=== PATIENT | female | born 1935 | race Caucasian/White ===

== ENCOUNTER → 2018-02-27 14:12 | Outpatient (CLI) | payer OTHER, MEDICAID, SELFPAY | PROVIDERS: PCP Family Medicine; Visit Provider Family Medicine | DX: M81.0 Age-related osteoporosis without current pathological fracture (principal) | CPT/HCPCS: 77080; 77081 ==

== ENCOUNTER → 2018-08-28 10:29 | Outpatient (CLI) | payer OTHER, MEDICAID, SELFPAY ==
--- NOTE | 2018-08-28 | DI.CT.S_ITS ---
PROCEDURE: CT ABDOMEN PELVIS W CON INDICATIONS: ABDOMINAL PAIN TECHNIQUE: After the administration of oral and intravenous contrast, 5 mm thick sections acquired from the diaphragms to the symphysis. 5 mm thick coronal and sagittal reformats were performed. For radiation dose reduction, the following was used: automated exposure control, adjustment of mA and/or kV according to patient size. COMPARISON: [facility], CT, ABDOMEN/PELVIS WITH CONTRAST, 06/25/2017, 12:21. FINDINGS: Image quality: Excellent. ABDOMEN: Lung bases: Fat-containing right posterior hemidiaphragmatic hernia is present, as before. Lung bases are otherwise clear. Heart size is normal. Solid organs: Liver is normal in size and enhancement. Gallbladder is surgically absent. Biliary system is non-dilated. Pancreas enhances normally. Spleen is normal in size and enhancement. No adrenal nodules. Kidneys are normal in size and enhancement, without hydronephrosis. Peritoneum and bowel: There is a new moderate hiatal hernia. Stomach, small bowel, and colon loops are normal in caliber and wall thickness. No free fluid or air. Appendix not seen. No evidence of appendicitis. Nodes and vessels: No retroperitoneal or mesenteric adenopathy. Aorta and inferior vena cava are normal in caliber. Miscellaneous: No ventral hernias. PELVIS: Genitourinary: Bladder wall thickness is normal. Bilateral ovarian cysts have increased in size, measuring 57 mm on the right, and 32 mm on the left Miscellaneous: No inguinal hernias or adenopathy. Left posterior pelvic cyst adjacent to the vaginal cuff is increased, measuring 37 mm. Bones: No suspicious bony lesions. Severe leftward curvature of the lumbar spine. Moderate rightward curvature of the thoracolumbar junction. No vertebral body compression fractures. IMPRESSION: 1. No acute process. 2. New moderate hiatal hernia. 3. Appendix not seen. No evidence of appendicitis. 4. Increased bilateral pelvic/ovarian cysts, which could indicate low-grade malignancy. Gynecological consultation recommended. Dictated by: Judson Khan M.D. on 08/28/2018 at 13:35 Approved by: Judson Khan M.D. on 08/28/2018 at 13:41
== END ==
PROVIDERS: PCP Family Medicine; Visit Provider Family Medicine
DX: R10.9 Unspecified abdominal pain (principal); K44.9 Diaphragmatic hernia without obstruction or gangrene; N83.202 Unspecified ovarian cyst, left side; N83.201 Unspecified ovarian cyst, right side
CPT/HCPCS: 74177; Q9967

== ENCOUNTER → 2018-09-18 07:38 | Outpatient (CLI) | payer OTHER, MEDICAID, SELFPAY ==
--- NOTE | 2018-09-18 | DI.US.S_ITS ---
PROCEDURE: US PELVIC COMPLETE INDICATIONS: OVARIAN CYSTS TECHNIQUE: Real-time scanning was performed of the pelvic organs, with image documentation. Additional endovaginal scanning was necessary due to incomplete visualization of the adnexal and endometrial structures by transabdominal scanning. COMPARISON: [facility], CT, ABDOMEN/PELVIS WITH CONTRAST, 06/25/2017, 12:21. [facility], CT, CT ABDOMEN PELVIS W CON, 08/28/2018, 11:33. FINDINGS: Transabdominal scanning: Limited scanning through the kidneys shows no hydronephrosis. No pathologic free abdominal or pelvic fluid. Endovaginal scanning: Uterus: Surgically absent. Ovaries: Ovaries are surgically absent. Simple cyst in mass within the right adnexa measuring 5.8 x 3.8 x 4.4 cm. Multicystic, mildly complex cystic mass within the left adnexa with the largest component measured 3.4 x 3.0 x 3.3 cm and the 2 smaller components measuring 2.0 x 1.3 x 1.4 cm and 1.6 x 1.0 x 1.4 cm respectively. Doppler assessment demonstrates no internal flow involving either of the cystic masses. IMPRESSION: 1. Bilateral cystic masses in pelvis similar to prior CT scan dated 08/28/2018. Cystadenoma/cystadenocarcinoma cannot be excluded. A gynecologic consultation is recommended. If clinically indicated, gynecologic protocol MRI could be performed for further characterization. Dictated by: Jelani WISEMAN Interpreted: Patria Coelho MD on 09/18/2018 at 9:41 Approved by: Patria Coelho M.D. on 09/18/2018 at 10:57
== END ==
PROVIDERS: PCP Family Medicine; Visit Provider Family Medicine
DX: N94.89 Other specified conditions associated with female genital organs and menstrual cycle (principal); Z90.722 Acquired absence of ovaries, bilateral
CPT/HCPCS: 76830; 76856

== ENCOUNTER → 2018-10-02 15:06 | Outpatient (CLI) | payer OTHER, MEDICAID, SELFPAY ==
[2018-10-02 16:19] LABS: Add Manual Diff / Slide Review NO; Basophils Percent Auto 0.3 % (0-2); Eosinophils Percent Auto 0.1 % (2-4); Hematocrit 37.1 % (36-46); Hemoglobin 11.9 g/dL (12.0-16.0); Lymphocytes Percent Auto 7.1 % (25-40); Mean Corpuscular Hemoglobin 27.3 PG (26-34); Mean Corpuscular Volume 85.1 fL (80-100); Monocytes Percent Auto 1.7 % (3-14); Neutrophils Absolute Auto 10000 /uL (1500-7000); Neutrophils Percent Auto 90.8 % (50-75); Platelet Count 272 X10^3/uL (150-400); Red Blood Cell Count 4.35 X10^6/uL (4.0-5.2)
[2018-10-02 16:30] LABS: Alanine Aminotransferase 21 IU/L (9-52); Albumin 4.2 g/dL (3.5-5.0); Albumin Globulin Ratio 1.8 (1.0-2.8); Alkaline Phosphatase 55 U/L (38-126); Aspartate Aminotransferase 16 IU/L (14-36); BUN Creatinine Ratio 18.2 (6-22); Bilirubin Total 0.2 mg/dL (0.2-1.3); Blood Urea Nitrogen 20 mg/dL (7-17); Calcium 10.8 mg/dL (8.4-10.2); Carbon Dioxide 24 mmol/L (22-32); Chloride 97 mmol/L (98-107); Estimated Glomerular Filt Rate 47.7 mL/min (>60); Globulin 2.4 g/dL (1.7-4.1); Glucose 188 mg/dL (80-110); HEMOLYSIS < 15 (0-50); Potassium 4.6 mmol/L (3.4-5.1); Sodium 133 mmol/L (137-145); Total Protein 6.6 g/dL (6.3-8.2)
== END ==
PROVIDERS: PCP Family Medicine; Visit Provider Dermatology
DX: Z79.899 Other long term (current) drug therapy (principal)
CPT/HCPCS: 36415; 80053; 85025

== ENCOUNTER → 2018-11-25 14:05 | Outpatient (CLI) | payer OTHER, MEDICAID, SELFPAY ==
[2018-11-25 14:36] LABS: Add Manual Diff / Slide Review NO; Basophils Absolute Auto 100 /uL (0-100); Basophils Percent Auto 0.9 % (0-2); Eosinophils Absolute Auto 100 /uL (0-450); Eosinophils Percent Auto 0.8 % (2-4); Hematocrit 36.1 % (36-46); Hemoglobin 11.7 g/dL (12.0-16.0); Lymphocytes Absolute Auto 1000 /uL (1100-4500); Mean Corpuscular HGB Conc 32.3 % (30-36); Mean Corpuscular Hemoglobin 27.1 PG (26-34); Mean Corpuscular Volume 84.2 fL (80-100); Monocytes Absolute Auto 400 /uL (0-900); Neutrophils Absolute Auto 8100 /uL (1500-7000); Neutrophils Percent Auto 84.3 % (50-75); Platelet Count 277 X10^3/uL (150-400); Red Blood Cell Count 4.29 X10^6/uL (4.0-5.2); Red Cell Distribution Width 16.1 % (11.6-14.8); White Blood Cell Count 9.6 X10^3/uL (4.5-11.0)
[2018-11-25 14:37] LABS: Alanine Aminotransferase 21 IU/L (9-52); Albumin 4.2 g/dL (3.5-5.0); Albumin Globulin Ratio 1.6 (1.0-2.8); Alkaline Phosphatase 51 U/L (38-126); Aspartate Aminotransferase 16 IU/L (14-36); BUN Creatinine Ratio 15.8 (6-22); Bilirubin Total 0.3 mg/dL (0.2-1.3); Blood Urea Nitrogen 19 mg/dL (7-17); Calcium 10.6 mg/dL (8.4-10.2); Carbon Dioxide 25 mmol/L (22-32); Chloride 96 mmol/L (98-107); Globulin 2.7 g/dL (1.7-4.1); Glucose 177 mg/dL (80-110); HEMOLYSIS < 15 (0-50); Potassium 5.1 mmol/L (3.4-5.1); Sodium 132 mmol/L (137-145); Total Protein 6.9 g/dL (6.3-8.2)
== END ==
PROVIDERS: PCP Family Medicine; Visit Provider Dermatology
DX: Z79.899 Other long term (current) drug therapy (principal)
CPT/HCPCS: 36415; 80053; 85025

== ENCOUNTER → 2019-01-25 14:43 | Outpatient (CLI) | payer OTHER, MEDICAID, SELFPAY ==
[2019-01-25 15:26] LABS: Add Manual Diff / Slide Review NO; Basophils Absolute Auto 0 /uL (0-100); Basophils Percent Auto 0.2 % (0-2); Eosinophils Absolute Auto 0 /uL (0-450); Eosinophils Percent Auto 0.1 % (2-4); Hematocrit 36.1 % (36-46); Hemoglobin 11.4 g/dL (12.0-16.0); Lymphocytes Absolute Auto 700 /uL (1100-4500); Lymphocytes Percent Auto 6.7 % (25-40); Mean Corpuscular HGB Conc 31.4 % (30-36); Mean Corpuscular Hemoglobin 26.6 PG (26-34); Mean Corpuscular Volume 84.7 fL (80-100); Monocytes Absolute Auto 400 /uL (0-900); Monocytes Percent Auto 3.6 % (3-14); Neutrophils Absolute Auto 9100 /uL (1500-7000); Neutrophils Percent Auto 89.4 % (50-75); Platelet Count 308 X10^3/uL (150-400); Red Blood Cell Count 4.26 X10^6/uL (4.0-5.2); Red Cell Distribution Width 15.6 % (11.6-14.8); White Blood Cell Count 10.2 X10^3/uL (4.5-11.0)
[2019-01-25 17:35] LABS: Alanine Aminotransferase 29 IU/L (9-52); Albumin 4.1 g/dL (3.5-5.0); Albumin Globulin Ratio 1.7 (1.0-2.8); Alkaline Phosphatase 48 U/L (38-126); Aspartate Aminotransferase 20 IU/L (14-36); BUN Creatinine Ratio 22.7 (6-22); Bilirubin Total 0.1 mg/dL (0.2-1.3); Blood Urea Nitrogen 25 mg/dL (7-17); Calcium 10.4 mg/dL (8.4-10.2); Carbon Dioxide 24 mmol/L (22-32); Chloride 95 mmol/L (98-107); Estimated Glomerular Filt Rate 47.6 mL/min (>60); Globulin 2.4 g/dL (1.7-4.1); Glucose 93 mg/dL (80-110); HEMOLYSIS < 15 (0-50); Sodium 129 mmol/L (137-145); Total Protein 6.5 g/dL (6.3-8.2)
[2019-01-25 17:40] LABS: Potassium 5.5 mmol/L (3.4-5.1)
== END ==
PROVIDERS: Visit Provider Dermatology
DX: Z79.899 Other long term (current) drug therapy (principal)
CPT/HCPCS: 36415; 80053; 85025

== ENCOUNTER → 2019-03-26 10:11 | Outpatient (CLI) | payer OTHER, MEDICAID, SELFPAY ==
[2019-03-26 10:55] LABS: Add Manual Diff / Slide Review NO; Basophils Absolute Auto 100 /uL (0-100); Basophils Percent Auto 0.8 % (0-2); Eosinophils Absolute Auto 200 /uL (0-450); Hematocrit 35.4 % (36-46); Hemoglobin 11.4 g/dL (12.0-16.0); Lymphocytes Absolute Auto 1700 /uL (1100-4500); Lymphocytes Percent Auto 20.6 % (25-40); Mean Corpuscular HGB Conc 32.2 % (30-36); Mean Corpuscular Hemoglobin 26.3 PG (26-34); Mean Corpuscular Volume 81.9 fL (80-100); Monocytes Absolute Auto 800 /uL (0-900); Monocytes Percent Auto 9.6 % (3-14); Neutrophils Absolute Auto 5400 /uL (1500-7000); Platelet Count 304 X10^3/uL (150-400); Red Blood Cell Count 4.33 X10^6/uL (4.0-5.2); Red Cell Distribution Width 14.4 % (11.6-14.8); White Blood Cell Count 8.1 X10^3/uL (4.5-11.0)
[2019-03-26 11:13] LABS: Alanine Aminotransferase 11 IU/L (9-52); Albumin Globulin Ratio 1.5 (1.0-2.8); Alkaline Phosphatase 55 U/L (38-126); Aspartate Aminotransferase 19 IU/L (14-36); BUN Creatinine Ratio 15.5 (6-22); Bilirubin Total 0.2 mg/dL (0.2-1.3); Blood Urea Nitrogen 17 mg/dL (7-17); Calcium 10.6 mg/dL (8.4-10.2); Carbon Dioxide 28 mmol/L (22-32); Chloride 97 mmol/L (98-107); Estimated Glomerular Filt Rate 47.6 mL/min (>60); Globulin 2.6 g/dL (1.7-4.1); Glucose 74 mg/dL (80-110); HEMOLYSIS < 15 (0-50); Potassium 4.2 mmol/L (3.4-5.1); Sodium 131 mmol/L (137-145); Total Protein 6.6 g/dL (6.3-8.2)
== END ==
PROVIDERS: Visit Provider Dermatology
DX: Z79.899 Other long term (current) drug therapy (principal)
CPT/HCPCS: 36415; 80053; 85025

== ENCOUNTER 2019-04-10 08:52 | Emergency (ER) | payer OTHER, MEDICAID, SELFPAY ==
[2019-04-10 08:47] VITALS: BP 159/84; PULSE 90; RESP 18; TEMP 37.2; O2SAT 98; BMI 17.8
[2019-04-10 09:00] VITALS: BP 162/88; PULSE 79; RESP 12; O2SAT 97
--- NOTE | 2019-04-10 09:02 | DI.US.S_ITS ---
PROCEDURE: US ABDOMEN LIMITED INDICATIONS: RUQ PAIN TECHNIQUE: Real-time focused scanning was performed of the abdomen, with image documentation. COMPARISON: Prior CT 08/28/18. FINDINGS: Prior cholecystectomy, source of right hand pain is not seen. IMPRESSION: Prior cholecystectomy. No biliary distention found. No liver lesion identified. Dictated by: Lex Scherer M.D. on 04/10/2019 at 10:01 Approved by: Lex Scherer M.D. on 04/10/2019 at 10:02
--- NOTE | 2019-04-10 09:02 | DI.RAD.S_ITS ---
PROCEDURE: XR CHEST 1V INDICATIONS: chest pain TECHNIQUE: One view of the chest was acquired. COMPARISON: [facility], CT, CT ABDOMEN PELVIS W CON, 04/10/2019, 9:44. [facility], CR, CHEST 2 VIEW, 05/14/2016, 11:42. FINDINGS: Surgical changes and devices: This is a cardiac pacer secondary to goiter is present. Lungs and pleura: There is slight increased density identified within the lung bases, which probably is related to parenchymal crowding from shallow inspiration. No lobar consolidation, effusion, or pneumothorax is evident. Mediastinum: Mediastinal contours appear normal. Heart size is normal. Bones and chest wall: No suspicious bony lesions. Overlying soft tissues appear unremarkable. IMPRESSION: No acute cardiopulmonary process is evident. Dictated by: Jermaine Vieyra M.D. on 04/10/2019 at 9:06 Approved by: Jermaine Vieyra M.D. on 04/10/2019 at 9:07
--- NOTE | 2019-04-10 09:02 | DI.CT.S_ITS ---
PROCEDURE: CT ABDOMEN PELVIS W CON INDICATIONS: lower pain, ruq pain TECHNIQUE: After the administration of oral and intravenous contrast, 5 mm thick sections acquired from the diaphragms to the symphysis. 5 mm thick coronal and sagittal reformats were performed. For radiation dose reduction, the following was used: automated exposure control, adjustment of mA and/or kV according to patient size. COMPARISON: [facility], CT, CT ABDOMEN PELVIS W CON, 08/28/2018, 11:33. [facility], CT, ABDOMEN/PELVIS WITH CONTRAST, 06/25/2017, 12:21. FINDINGS: Image quality: Diagnostic. ABDOMEN: Lung bases: Lung bases are clear. Heart size is normal. Pectus excavatum is noted with mild mass effect on the right heart border. Cardiac pacer device is incidentally noted. Solid organs: Liver is normal in size and enhancement. The gallbladder is surgically absent. The common bile duct is mildly dilated and measures up to approximately 1.1 cm in diameter, which is unchanged since the previous exam. Pancreas enhances normally. Spleen is normal in size and enhancement. No adrenal nodules. Kidneys are normal in size and enhancement, without hydronephrosis. Peritoneum and bowel: There continues to be a moderate-sized hiatal hernia, which has not significantly changed in size. The stomach is otherwise unremarkable. The small bowel loops are nondilated. There is moderate residual stool identified throughout the colon, which is more pronounced involving the cecum. No pericolonic or mesenteric inflammation is identified. There is no free fluid or loculated fluid collection. No free air is evident. Nodes and vessels: No retroperitoneal or mesenteric adenopathy. Aorta and inferior vena cava are normal in caliber. Bones: No acute fracture or suspicious osseous lesion is present. 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 The vertebral body heights are well-maintained without an acute fracture evident. PELVIS: Genitourinary: Bladder wall thickness is normal. Cystic lesions within the pelvis are again evident. The largest is located within the right hemipelvis and has decreased in size in the interim, measuring approximately 3.8 x 2.7 cm (image 61, series 2), previously measuring approximately 5.5 x 3.8 cm. The more centrally positioned a cystic fluid collection within the pelvis has not significantly changed in size measuring approximately 3.9 x 3.3 cm (previously measuring 3.8 x 3.3 cm when remeasured in a similar configuration. The smaller left adnexal fluid collections have slightly increased in size in the interim measuring 3.1 x 2.2 cm (image 61, series 2), previously measuring 2.8 x 2.1 cm. There is mild peripheral nodularity may be present. Miscellaneous: No inguinal hernias or adenopathy. No free fluid or loculated fluid collection is evident. Calcification within the subcutaneous tissues overlying the superior right gluteal region likely represents an injection granuloma or site of previous injury. Bones: No suspicious bony lesions. No acute pelvic fractures are identified. Postoperative changes related to right hip arthroplasty are noted. There may be a right hip effusion. IMPRESSION: 1. No definite acute abnormality within the abdomen or pelvis. 2. Probable constipation. No obstruction. 3. Cystic lesions within the pelvis demonstrate variable degrees of change as described. A low-grade neoplastic process cannot be excluded. 4. Mild dilatation of the common bile duct is likely within normal limits given the patient's history of prior cholecystectomy. If there is clinical concern for choledocholithiasis, please consider MRCP for further evaluation. Dictated by: Jermaine Vieyra M.D. on 04/10/2019 at 9:07 Approved by: Jermaine Vieyra M.D. on 04/10/2019 at 9:17
--- NOTE | 2019-04-10 09:05 | ED.ABDPAIN ---
HPI - Abdominal Pain General Chief Complaint: Abdominal Pain Stated Complaint: abdominal pain Time Seen by Provider: 04/10/19 08:58 Source: patient Mode of arrival: ambulatory Limitations: no limitations History of Present Illness HPI narrative: Patient is an 83-year-old female who presents with abdominal pain. She has a history of diverticulosis. She is experiencing some epigastric pain lower abdominal pain as well. It has been going she took pain pill this morning but it does not seem to be helping. She can't remember her last bowel movement back she had an enema couple days ago. She has not had any fever or chills she denies chest pain or shortness of breath but is having pain in the epigastric area no right upper quadrant pain. He denies any fever no nausea and no vomiting no bloody stool. MD complaint: abdominal pain Onset (ago): day(s) Quality: cramping Migration to: no migration Relieving factors: nothing Related Data Home Medications Medication Instructions Recorded Confirmed Zolpidem Tartrate (Ambien) #0 12/24/10 [ESTRADIOL] 0.625 mg PO QDAY #0 12/24/10 [MELOXICAM] 15 mg PO AM #0 12/24/10 diphenhydramine HCl [Benadryl 50 mg PO Q6HP PRN #0 05/11/16 Allergy] paroxetine HCl 30 mg PO QDAY #0 05/11/16 amlodipine [Norvasc] 5 mg PO BID #0 06/13/17 cholecalciferol (vitamin D3) 5,000 unit PO QDAY #0 06/13/17 diazepam 5 mg PO PRN PRN #0 06/13/17 folic acid 1 mg PO QDAY #0 06/13/17 hydrocodone-acetaminophen [Vicodin] #0 06/13/17 hyoscyamine sulfate 0.125 mg SUBLINGUAL #0 06/13/17 methotrexate sodium (PF) 50 mg IV QWEEK #0 06/13/17 omega 1-bij-ryc-fish oil [Fish Oil] 1,000 mg PO BID #0 06/13/17 omeprazole 20 mg PO BID #0 06/13/17 prednisolone [Millipred] 5 mg PO QDAY #0 06/13/17 sucralfate 1 gm PO ACHS #0 06/13/17 Previous Rx's Medication Instructions Recorded lactulose 15 ml PO BID PRN #473 ml 04/10/19 Allergies Allergy/AdvReac Type Severity Reaction Status Date / Time erythromycin base Allergy Severe swelling Verified 04/10/19 09:02 [ERYTHROMYCIN BASE] amoxicillin [AMOXICILLIN] Allergy Intermediate diarhhea Verified 04/10/19 09:02 balsam shemar [BALSAM SHEMAR] Allergy Intermediate rash Verified 04/10/19 09:02 bronopol [BRONOPOL] Allergy Intermediate rash Verified 04/10/19 09:02 cefdinir [CEFDINIR] Allergy Intermediate stomach Verified 04/10/19 09:02 ache cobalt [COBALT] Allergy Intermediate rash Verified 04/10/19 09:02 propylene glycol Allergy Intermediate rash Verified 04/10/19 09:02 [PROPYLENE GLYCOL] Sulfa (Sulfonamide Allergy Intermediate nausea Verified 04/10/19 09:02 Antibiotics) [SULFA (SULFONAMIDE ANTIBIOTICS)] morphine [MORPHINE] Allergy Unknown Verified 04/10/19 09:02 Review of Systems Review of Systems ROS Unobtainable: All systems reviewed & are unremarkable except as noted in HPI and below Constitutional Denies chills, Denies fever(s), Denies lethargy and Denies weakness Eyes Denies change in vision, Denies eye discharge, Denies irritation and Denies loss of vision ENT Ears, Nose, Mouth, and Throat: Denies change in voice, Denies neck pain and Denies sore throat Cardiovascular Denies chest pain, Denies irregular heart rhythm, Denies lightheadedness, Denies palpitations, Denies dyspnea, Denies dyspnea on exertion and Denies orthopnea Respiratory Denies cough, Denies dyspnea, Denies dyspnea on exertion and Denies wheezing Gastrointestinal Gastrointestinal: Reports as per HPI, Reports abdominal pain, Denies nausea and Denies vomiting Genitourinary Denies hematuria, Denies flank pain, Denies urinary incontinence and Denies urinary urgency Musculoskeletal Denies neck pain Neurologic Denies loss of vision and Denies weakness Endocrine Denies palpitations Allergic/Immunologic Denies wheezing [facility] Medical History Diverticulosis (Acute) Social History Smoking Status: Former smoker Social History Smoking Status: Former smoker Exam Initial Vital Signs Initial Vital Signs: Vital Signs Temperature 99.0 F 04/10/19 08:47 Pulse Rate 90 04/10/19 08:47 Respiratory Rate 18 04/10/19 08:47 Blood Pressure 159/84 H 04/10/19 08:47 Pulse Oximetry 98 04/10/19 08:47 GENERAL: Alert elderly female no acute distress a no times HEENT: Head atraumatic,EOMI, pupils reactive, face symmetric, moist mucous membranes CARDIOVASCULAR: Regular rate and rhythm without murmurs, rubs or gallops. RESPIRATORY: Breath sounds equal bilaterally, no wheezes rales or rhonchi. ABDOMEN: Soft, in epigastric area mild tenderness in right upper quadrant pain lower abdominal tenderness more on the left no guarding no rebound EXTREMITIES: Normal range of motion, no clubbing or edema. Neurovascularly intact NEUROLOGICAL: Alert and oriented x4.Normal gait and speech. Cranial nerves II through XII grossly intact. SKIN: Warm, dry, no laceration, no petechiae, no rashes or lesions. Course Orders Ordered: ED Orders 04/10/19 09:02 CT abdomen pelvis w con Stat US abdomen limited Stat XR chest 1V Stat EKG-12 Lead Stat 04/10/19 09:05 Complete Blood Count AUTO DIFF Stat Comprehensive Metabolic Panel Stat Lipase Stat Troponin & CK Cardiac Panel Stat Discontinued Medications Hydromorphone HCl (Dilaudid) 0.5 mg IV NOW ONE Stop: 04/10/19 12:13 Last Admin: 04/10/19 12:25 Dose: 0.5 mg Sodium Chloride (Normal Saline 0.9%) 1,000 mls @ 150 mls/hr IV CONT CYRUS Last Infusion: 04/10/19 14:21 Dose: 0 mls/hr Admin: 04/10/19 09:10 Dose: 150 mls/hr Ketorolac Tromethamine (Toradol) 15 mg IV NOW ONE Stop: 04/10/19 14:03 Last Admin: 04/10/19 14:05 Dose: 15 mg Mineral Oil (Mineral Oil Enema) 1 each OH NOW ONE Stop: 04/10/19 10:30 Last Admin: 04/10/19 12:49 Dose: 1 each Ondansetron HCl (Zofran) 4 mg IV NOW ONE Stop: 04/10/19 12:30 Last Admin: 04/10/19 12:31 Dose: 4 mg Vital Signs - 8 hr 04/10/19 08:47 04/10/19 09:00 04/10/19 10:09 Temperature 99.0 F Pulse Rate 90 79 79 Respiratory Rate 18 12 13 Blood Pressure 159/84 H Blood Pressure [Right Arm] 162/88 H 161/76 H Pulse Oximetry 98 97 99 04/10/19 11:36 04/10/19 12:00 04/10/19 14:06 Temperature Pulse Rate 91 H 91 H 77 Respiratory Rate 15 16 16 Blood Pressure Blood Pressure [Right Arm] 171/78 H 158/78 H 144/80 H Pulse Oximetry 98 100 99 MDM - Abdominal Pain Lab Data Attestation: I reviewed the patient's lab results. Result diagrams: 04/10/19 09:05 04/10/19 09:05 Lab Results 04/10/19 04/10/19 Range/Units 09:05 09:05 WBC 6.7 (4.5-11.0) X10^3/uL RBC 4.72 (4.0-5.2) X10^6/uL Hgb 12.3 (12.0-16.0) g/dL Hct 37.7 (36-46) % MCV 79.8 L (80-100) fL MCH 25.9 L (26-34) PG MCHC 32.5 (30-36) % RDW 15.0 H (11.6-14.8) % Plt Count 278 (150-400) X10^3/uL Neut % (Auto) 61.1 (50-75) % Lymph % (Auto) 25.7 (25-40) % Moore % (Auto) 9.9 (3-14) % Eos % (Auto) 2.5 (2-4) % Baso % (Auto) 0.8 (0-2) % Neut # (Auto) 4100 (2277-8862) /uL Lymph # (Auto) 1700 (9200-4018) /uL Moore # (Auto) 700 (0-900) /uL Eos # (Auto) 200 (0-450) /uL Baso # (Auto) 100 (0-100) /uL Sodium 131 L (137-145) mmol/L Potassium 3.5 (3.4-5.1) mmol/L Chloride 97 L (98-107) mmol/L Carbon Dioxide 23 (22-32) mmol/L BUN 10 (7-17) mg/dL Creatinine 1.00 (0.52-1.04) mg/dL Estimated GFR 53.1 L (>60) mL/min BUN/Creatinine Ratio 10.0 (6-22) Glucose 105 (80-110) mg/dL Calcium 10.5 H (8.4-10.2) mg/dL Total Bilirubin 0.4 (0.2-1.3) mg/dL AST 20 (14-36) IU/L ALT 13 (9-52) IU/L Alkaline Phosphatase 55 (38-126) U/L Total Creatine Kinase 39 (30-135) U/L CK-MB (CK-2) TNP CK-MB (CK-2) Rel Index TNP Troponin I 0.014 (0.01-0.034) ng/mL Total Protein 6.8 (6.3-8.2) g/dL Albumin 4.2 (3.5-5.0) g/dL Globulin 2.6 (1.7-4.1) g/dL Albumin/Globulin Ratio 1.6 (1.0-2.8) Lipase 104 (23-300) U/L Imaging Data Chest x-ray: Radiologist's impression: PROCEDURE: XR CHEST 1V INDICATIONS: chest pain TECHNIQUE: One view of the chest was acquired. COMPARISON: [facility], CT, CT ABDOMEN PELVIS W CON, 04/10/2019, 9:44. [facility], CR, CHEST 2 VIEW, 05/14/2016, 11:42. FINDINGS: Surgical changes and devices: This is a cardiac pacer secondary to goiter is present. Lungs and pleura: There is slight increased density identified within the lung bases, which probably is related to parenchymal crowding from shallow inspiration. No lobar consolidation, effusion, or pneumothorax is evident. Mediastinum: Mediastinal contours appear normal. Heart size is normal. Bones and chest wall: No suspicious bony lesions. Overlying soft tissues appear unremarkable. IMPRESSION: No acute cardiopulmonary process is evident. Dictated by: Jermaine Vieyra M.D. on 04/10/2019 at 9:06 US - abdomen: Radiologist's impression: PROCEDURE: US ABDOMEN LIMITED INDICATIONS: RUQ PAIN TECHNIQUE: Real-time focused scanning was performed of the abdomen, with image documentation. COMPARISON: Prior CT 08/28/18. FINDINGS: Prior cholecystectomy, source of right hand pain is not seen. IMPRESSION: Prior cholecystectomy. No biliary distention found. No liver lesion identified. Dictated by: Lex Scherer M.D. on 04/10/2019 at 10:01 Approved by: Lex Scherer M.D. on 04/10/2019 at 10:02 CT scan - abdomen: Radiologist's impression: PROCEDURE: CT ABDOMEN PELVIS W CON INDICATIONS: lower pain, ruq pain TECHNIQUE: After the administration of oral and intravenous contrast, 5 mm thick sections acquired from the diaphragms to the symphysis. 5 mm thick coronal and sagittal reformats were performed. For radiation dose reduction, the following was used: automated exposure control, adjustment of mA and/or kV according to patient size. COMPARISON: [facility], CT, CT ABDOMEN PELVIS W CON, 08/28/2018, 11:33. [facility], CT, ABDOMEN/PELVIS WITH CONTRAST, 06/25/2017, 12:21. FINDINGS: Image quality: Diagnostic. ABDOMEN: Lung bases: Lung bases are clear. Heart size is normal. Pectus excavatum is noted with mild mass effect on the right heart border. Cardiac pacer device is incidentally noted. Solid organs: Liver is normal in size and enhancement. The gallbladder is surgically absent. The common bile duct is mildly dilated and measures up to approximately 1.1 cm in diameter, which is unchanged since the previous exam. Pancreas enhances normally. Spleen is normal in size and enhancement. No adrenal nodules. Kidneys are normal in size and enhancement, without hydronephrosis. Peritoneum and bowel: There continues to be a moderate-sized hiatal hernia, which has not significantly changed in size. The stomach is otherwise unremarkable. The small bowel loops are nondilated. There is moderate residual stool identified throughout the colon, which is more pronounced involving the cecum. No pericolonic or mesenteric inflammation is identified. There is no free fluid or loculated fluid collection. No free air is evident. Nodes and vessels: No retroperitoneal or mesenteric adenopathy. Aorta and inferior vena cava are normal in caliber. Bones: No acute fracture or suspicious osseous lesion is present. 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 The vertebral body heights are well-maintained without an acute fracture evident. PELVIS: Genitourinary: Bladder wall thickness is normal. Cystic lesions within the pelvis are again evident. The largest is located within the right hemipelvis and has decreased in size in the interim, measuring approximately 3.8 x 2.7 cm (image 61, series 2), previously measuring approximately 5.5 x 3.8 cm. The more centrally positioned a cystic fluid collection within the pelvis has not significantly changed in size measuring approximately 3.9 x 3.3 cm (previously measuring 3.8 x 3.3 cm when remeasured in a similar configuration. The smaller left adnexal fluid collections have slightly increased in size in the interim measuring 3.1 x 2.2 cm (image 61, series 2), previously measuring 2.8 x 2.1 cm. There is mild peripheral nodularity may be present. Miscellaneous: No inguinal hernias or adenopathy. No free fluid or loculated fluid collection is evident. Calcification within the subcutaneous tissues overlying the superior right gluteal region likely represents an injection granuloma or site of previous injury. Bones: No suspicious bony lesions. No acute pelvic fractures are identified. Postoperative changes related to right hip arthroplasty are noted. There may be a right hip effusion. IMPRESSION: 1. No definite acute abnormality within the abdomen or pelvis. 2. Probable constipation. No obstruction. 3. Cystic lesions within the pelvis demonstrate variable degrees of change as described. A low-grade neoplastic process cannot be excluded. 4. Mild dilatation of the common bile duct is likely within normal limits given the patient's history of prior cholecystectomy. If there is clinical concern for choledocholithiasis, please consider MRCP for further evaluation. Dictated by: Jermaine Vieyra M.D. on 04/10/2019 at 9:07 ECG Data Attestation: I personally reviewed and interpreted this ECG as follows: Interpretation: Normal sinus rhythm rate [address] changes no T-wave inversions MDM Narrative Medical decision making narrative: Patient appears to have pelvic cysts which may be causing her pain. They do not appear grossly changed she has been seen by Dr. Espinal about this already. She is wanting 2nd 3rd opinion about this which she is working on. She given Dilaudid for pain which seems to help. She is offered an enema which fortunately was not successful. I will prescribe her lactulose to help her with her constipation. She has pain medication already. At this time no indication for admission. Discharge Plan Departure Patient Disposition: Home Clinical Impression: Constipation Qualifiers: Constipation type: unspecified constipation type Qualified Code(s): K59.00 - Constipation, unspecified Discharge Date/Time: 04/10/19 14:22 Interventions: ED Discharge Assessment Last Done: 04/10/19 14:21 Instructions: Constipation Activity Restrictions/Additional Instructions: *You have been diagnosed with constipation *What to do: At this time CT scan continues to show cysts in your pelvic area which may be causing the pain. However no significant increase in size since August. May require surgery consultation *Continue to take medications as directed Lactulose 15mL twice daily until stool--> sent to [facility] in [place] *Follow up with your primary care provider in 2-3 days *Return to ER if you should have increased pain or any new, worsening or concerning symptoms Prescriptions: New lactulose 10 gram/15 mL solution 15 ml PO BID PRN (Reason: constipation) Qty: 473 RF: 0 No Action [MELOXICAM] 15 mg PO AM Qty: 0 RF: 0 [ESTRADIOL] 0.625 mg PO QDAY Qty: 0 RF: 0 Zolpidem Tartrate (Ambien) Qty: 0 RF: 0 diphenhydramine HCl [Benadryl Allergy] 25 MG tablet 50 mg PO Q6HP PRNQty: 0 RF: 0 paroxetine HCl 30 MG tablet 30 mg PO QDAY Qty: 0 RF: 0 amlodipine [Norvasc] 5 MG tablet 5 mg PO BID Qty: 0 RF: 0 sucralfate 1 GM tablet 1 gm PO ACHS Qty: 0 RF: 0 methotrexate sodium (PF) 25 MG/1 ML solution 50 mg IV QWEEK Qty: 0 RF: 0 cholecalciferol (vitamin D3) 5,000 UNIT capsule 5,000 unit PO QDAY Qty: 0 RF: 0 prednisolone [Millipred] 5 MG tablet 5 mg PO QDAY Qty: 0 RF: 0 folic acid 1 MG tablet 1 mg PO QDAY Qty: 0 RF: 0 omega 4-kla-kju-fish oil [Fish Oil] 1,000 MG capsule 1,000 mg PO BID Qty: 0 RF: 0 hydrocodone-acetaminophen [Vicodin] 5 MG/300 MG tablet Qty: 0 RF: 0 hyoscyamine sulfate 0.125 MG tablet,disintegrating 0.125 mg Sublingual Qty: 0 RF: 0 diazepam 5 MG tablet 5 mg PO PRN PRNQty: 0 RF: 0 omeprazole 20 MG tablet,delayed release (DR/EC) 20 mg PO BID Qty: 0 RF: 0 Referrals: Lucina Barnett MD [Non-Staff] -
[2019-04-10] MEDS: SODIUM CHLORIDE 0.9% 1,000 ML 150 ML IV (09:10)
[2019-04-10 09:16] LABS: Add Manual Diff / Slide Review NO; Basophils Absolute Auto 100 /uL (0-100); Basophils Percent Auto 0.8 % (0-2); Eosinophils Absolute Auto 200 /uL (0-450); Eosinophils Percent Auto 2.5 % (2-4); Hematocrit 37.7 % (36-46); Hemoglobin 12.3 g/dL (12.0-16.0); Lymphocytes Absolute Auto 1700 /uL (1100-4500); Lymphocytes Percent Auto 25.7 % (25-40); Mean Corpuscular HGB Conc 32.5 % (30-36); Mean Corpuscular Hemoglobin 25.9 PG (26-34); Mean Corpuscular Volume 79.8 fL (80-100); Monocytes Absolute Auto 700 /uL (0-900); Monocytes Percent Auto 9.9 % (3-14); Neutrophils Absolute Auto 4100 /uL (1500-7000); Neutrophils Percent Auto 61.1 % (50-75); Platelet Count 278 X10^3/uL (150-400); Red Blood Cell Count 4.72 X10^6/uL (4.0-5.2); White Blood Cell Count 6.7 X10^3/uL (4.5-11.0)
--- NOTE | 2019-04-10 09:27 | ED_ITS ---
HPI - Abdominal Pain General Chief Complaint: Abdominal Pain Stated Complaint: abdominal pain Time Seen by Provider: 04/10/19 08:58 Source: patient Mode of arrival: ambulatory Limitations: no limitations History of Present Illness HPI narrative: Patient is an 83-year-old female who presents with abdominal pain. She has a history of diverticulosis. She is experiencing some epigastric pain lower abdominal pain as well. It has been going she took pain pill this morning but it does not seem to be helping. She can't remember her last bowel movement back she had an enema couple days ago. She has not had any fever or chills she denies chest pain or shortness of breath but is having pain in the epigastric area no right upper quadrant pain. He denies any fever no nausea and no vomiting no bloody stool. MD complaint: abdominal pain Onset (ago): day(s) Quality: cramping Migration to: no migration Relieving factors: nothing Related Data Home Medications Medication Instructions Recorded Confirmed Zolpidem Tartrate (Ambien) #0 12/24/10 [ESTRADIOL] 0.625 mg PO QDAY #0 12/24/10 [MELOXICAM] 15 mg PO AM #0 12/24/10 diphenhydramine HCl [Benadryl 50 mg PO Q6HP PRN #0 05/11/16 Allergy] paroxetine HCl 30 mg PO QDAY #0 05/11/16 amlodipine [Norvasc] 5 mg PO BID #0 06/13/17 cholecalciferol (vitamin D3) 5,000 unit PO QDAY #0 06/13/17 diazepam 5 mg PO PRN PRN #0 06/13/17 folic acid 1 mg PO QDAY #0 06/13/17 hydrocodone-acetaminophen [Vicodin] #0 06/13/17 hyoscyamine sulfate 0.125 mg SUBLINGUAL #0 06/13/17 methotrexate sodium (PF) 50 mg IV QWEEK #0 06/13/17 omega 3-zrm-qhp-fish oil [Fish Oil] 1,000 mg PO BID #0 06/13/17 omeprazole 20 mg PO BID #0 06/13/17 prednisolone [Millipred] 5 mg PO QDAY #0 06/13/17 sucralfate 1 gm PO ACHS #0 06/13/17 Previous Rx's Medication Instructions Recorded lactulose 15 ml PO BID PRN #473 ml 04/10/19 Allergies Allergy/AdvReac Type Severity Reaction Status Date / Time erythromycin base Allergy Severe swelling Verified 04/10/19 09:02 [ERYTHROMYCIN BASE] amoxicillin [AMOXICILLIN] Allergy Intermediate diarhhea Verified 04/10/19 09:02 balsam shemar [BALSAM SHEMAR] Allergy Intermediate rash Verified 04/10/19 09:02 bronopol [BRONOPOL] Allergy Intermediate rash Verified 04/10/19 09:02 cefdinir [CEFDINIR] Allergy Intermediate stomach Verified 04/10/19 09:02 ache cobalt [COBALT] Allergy Intermediate rash Verified 04/10/19 09:02 propylene glycol Allergy Intermediate rash Verified 04/10/19 09:02 [PROPYLENE GLYCOL] Sulfa (Sulfonamide Allergy Intermediate nausea Verified 04/10/19 09:02 Antibiotics) [SULFA (SULFONAMIDE ANTIBIOTICS)] morphine [MORPHINE] Allergy Unknown Verified 04/10/19 09:02 Review of Systems Review of Systems ROS Unobtainable: All systems reviewed & are unremarkable except as noted in HPI and below Constitutional Denies chills, Denies fever(s), Denies lethargy and Denies weakness Eyes Denies change in vision, Denies eye discharge, Denies irritation and Denies loss of vision ENT Ears, Nose, Mouth, and Throat: Denies change in voice, Denies neck pain and Denies sore throat Cardiovascular Denies chest pain, Denies irregular heart rhythm, Denies lightheadedness, Denies palpitations, Denies dyspnea, Denies dyspnea on exertion and Denies orthopnea Respiratory Denies cough, Denies dyspnea, Denies dyspnea on exertion and Denies wheezing Gastrointestinal Gastrointestinal: Reports as per HPI, Reports abdominal pain, Denies nausea and Denies vomiting Genitourinary Denies hematuria, Denies flank pain, Denies urinary incontinence and Denies urinary urgency Musculoskeletal Denies neck pain Neurologic Denies loss of vision and Denies weakness Endocrine Denies palpitations Allergic/Immunologic Denies wheezing [facility] Medical History Diverticulosis (Acute) Social History Smoking Status: Former smoker Social History Smoking Status: Former smoker Exam Initial Vital Signs Initial Vital Signs: Vital Signs Temperature 99.0 F 04/10/19 08:47 Pulse Rate 90 04/10/19 08:47 Respiratory Rate 18 04/10/19 08:47 Blood Pressure 159/84 H 04/10/19 08:47 Pulse Oximetry 98 04/10/19 08:47 GENERAL: Alert elderly female no acute distress a no times HEENT: Head atraumatic,EOMI, pupils reactive, face symmetric, moist mucous mem branes CARDIOVASCULAR: Regular rate and rhythm without murmurs, rubs or gallops. RESPIRATORY: Breath sounds equal bilaterally, no wheezes rales or rhonchi. ABDOMEN: Soft, in epigastric area mild tenderness in right upper quadrant pain lower abdominal tenderness more on the left no guarding no rebound EXTREMITIES: Normal range of motion, no clubbing or edema. Neurovascularly intact NEUROLOGICAL: Alert and oriented x4.Normal gait and speech. Cranial nerves II through XII grossly intact. SKIN: Warm, dry, no laceration, no petechiae, no rashes or lesions. Course Orders Ordered: ED Orders 04/10/19 09:02 CT abdomen pelvis w con Stat US abdomen limited Stat XR chest 1V Stat EKG-12 Lead Stat 04/10/19 09:05 Complete Blood Count AUTO DIFF Stat Comprehensive Metabolic Panel Stat Lipase Stat Troponin & CK Cardiac Panel Stat Discontinued Medications Hydromorphone HCl (Dilaudid) 0.5 mg IV NOW ONE Stop: 04/10/19 12:13 Last Admin: 04/10/19 12:25 Dose: 0.5 mg Sodium Chloride (Normal Saline 0.9%) 1,000 mls @ 150 mls/hr IV CONT CYRUS Last Infusion: 04/10/19 14:21 Dose: 0 mls/hr Admin: 04/10/19 09:10 Dose: 150 mls/hr Ketorolac Tromethamine (Toradol) 15 mg IV NOW ONE Stop: 04/10/19 14:03 Last Admin: 04/10/19 14:05 Dose: 15 mg Mineral Oil (Mineral Oil Enema) 1 each [place] NOW ONE Stop: 04/10/19 10:30 Last Admin: 04/10/19 12:49 Dose: 1 each Ondansetron HCl (Zofran) 4 mg IV NOW ONE Stop: 04/10/19 12:30 Last Admin: 04/10/19 12:31 Dose: 4 mg Vital Signs - 8 hr 04/10/19 08:47 04/10/19 09:00 04/10/19 10:09 Temperature 99.0 F Pulse Rate 90 79 79 Respiratory Rate 18 12 13 Blood Pressure 159/84 H Blood Pressure [Right Arm] 162/88 H 161/76 H Pulse Oximetry 98 97 99 04/10/19 11:36 04/10/19 12:00 04/10/19 14:06 Temperature Pulse Rate 91 H 91 H 77 Respiratory Rate 15 16 16 Blood Pressure Blood Pressure [Right Arm] 171/78 H 158/78 H 144/80 H Pulse Oximetry 98 100 99 MDM - Abdominal Pain Lab Data Attestation: I reviewed the patient's lab results. Result diagrams: 04/10/19 09:05 04/10/19 09:05 Lab Results 04/10/19 04/10/19 Range/Units 09:05 09:05 WBC 6.7 (4.5-11.0) X10^3/uL RBC 4.72 (4.0-5.2) X10^6/uL Hgb 12.3 (12.0-16.0) g/dL Hct 37.7 (36-46) % MCV 79.8 L (80-100) fL MCH 25.9 L (26-34) PG MCHC 32.5 (30-36) % RDW 15.0 H (11.6-14.8) % Plt Count 278 (150-400) X10^3/uL Neut % (Auto) 61.1 (50-75) % Lymph % (Auto) 25.7 (25-40) % Smyth % (Auto) 9.9 (3-14) % Eos % (Auto) 2.5 (2-4) % Baso % (Auto) 0.8 (0-2) % Neut # (Auto) 4100 (7543-2197) /uL Lymph # (Auto) 1700 (9036-8152) /uL Smyth # (Auto) 700 (0-900) /uL Eos # (Auto) 200 (0-450) /uL Baso # (Auto) 100 (0-100) /uL Sodium 131 L (137-145) mmol/L Potassium 3.5 (3.4-5.1) mmol/L Chloride 97 L (98-107) mmol/L Carbon Dioxide 23 (22-32) mmol/L BUN 10 (7-17) mg/dL Creatinine 1.00 (0.52-1.04) mg/dL Estimated GFR 53.1 L (>60) mL/min BUN/Creatinine Ratio 10.0 (6-22) Glucose 105 (80-110) mg/dL Calcium 10.5 H (8.4-10.2) mg/dL Total Bilirubin 0.4 (0.2-1.3) mg/dL AST 20 (14-36) IU/L ALT 13 (9-52) IU/L Alkaline Phosphatase 55 (38-126) U/L Total Creatine Kinase 39 (30-135) U/L CK-MB (CK-2) TNP CK-MB (CK-2) Rel Index TNP Troponin I 0.014 (0.01-0.034) ng/mL Total Protein 6.8 (6.3-8.2) g/dL Albumin 4.2 (3.5-5.0) g/dL Globulin 2.6 (1.7-4.1) g/dL Albumin/Globulin Ratio 1.6 (1.0-2.8) Lipase 104 (23-300) U/L Imaging Data Chest x-ray: Radiologist's impression: PROCEDURE: XR CHEST 1V INDICATIONS: chest pain TECHNIQUE: One view of the chest was acquired. COMPARISON: [facility], CT, CT ABDOMEN PELVIS W CON, 04/10/2019, 9:44. [facility], CR, CHEST 2 VIEW, 05/14/2016, 11:42. FINDINGS: Surgical changes and devices: This is a cardiac pacer secondary to goiter is present. Lungs and pleura: There is slight increased density identified within the lung bases, which probably is related to parenchymal crowding from shallow inspiration. No lobar consolidation, effusion, or pneumothorax is evident. Mediastinum: Mediastinal contours appear normal. Heart size is normal. Bones and chest wall: No suspicious bony lesions. Overlying soft tissues appear unremarkable. IMPRESSION: No acute cardiopulmonary process is evident. Dictated by: Jermaine Vieyra M.D. on 04/10/2019 at 9:06 US - abdomen: Radiologist's impression: PROCEDURE: US ABDOMEN LIMITED INDICATIONS: RUQ PAIN TECHNIQUE: Real-time focused scanning was performed of the abdomen, with image documentati on. COMPARISON: Prior CT 08/28/18. FINDINGS: Prior cholecystectomy, source of right hand pain is not seen. IMPRESSION: Prior cholecystectomy. No biliary distention found. No liver lesion identified. Dictated by: Lex Scherer M.D. on 04/10/2019 at 10:01 Approved by: Lex Scherer M.D. on 04/10/2019 at 10:02 CT scan - abdomen: Radiologist's impression: PROCEDURE: CT ABDOMEN PELVIS W CON INDICATIONS: lower pain, ruq pain TECHNIQUE: After the administration of oral and intravenous contrast, 5 mm thick sections acquired from the diaphragms to the symphysis. 5 mm thick coronal and sagittal reformats were performed. For radiation dose reduction, the following was used: automated exposure control, adjustment of mA and/or kV according to patient size. COMPARISON: [facility], CT, CT ABDOMEN PELVIS W CON, 08/28/2018, 11:33. [facility], CT, ABDOMEN/PELVIS WITH CONTRAST, 06/25/2017, 12:21. FINDINGS: Image quality: Diagnostic. ABDOMEN: Lung bases: Lung bases are clear. Heart size is normal. Pectus excavatum is noted with mild mass effect on the right heart border. Cardiac pacer device is incidentally noted. Solid organs: Liver is normal in size and enhancement. The gallbladder is surgically absent. The common bile duct is mildly dilated and measures up to approximately 1.1 cm in diameter, which is unchanged since the previous exam. Pancreas enhances normally. Spleen is normal in size and enhancement. No adrenal nodules. Kidneys are nor mal in size and enhancement, without hydronephrosis. Peritoneum and bowel: There continues to be a moderate-sized hiatal hernia, which has not significantly changed in size. The stomach is otherwise unremarkable. The small bowel loops are nondilated. There is moderate residual stool identified throughout the colon, which is more pronounced involving the cecum. No pericolonic or mesenteric inflammation is identified. There is no free fluid or loculated fluid collection. No free air is evident. Nodes and vessels: No retroperitoneal or mesenteric adenopathy. Aorta and inferior vena cava are normal in caliber. Bones: No acute fracture or suspicious osseous lesion is present. 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 The vertebral body heights are well-maintained without an acute fracture evident. PELVIS: Genitourinary: Bladder wall thickness is normal. Cystic lesions within the pelvis are again evident. The largest is located within the right hemipelvis and has decreased in size in the interim, measuring approximately 3.8 x 2.7 cm (image 61, series 2), previously measuring approximately 5.5 x 3.8 cm. The more centrally positioned a cystic fluid collection within the pelvis has not significantly changed in size measuring approximately 3.9 x 3.3 cm (previously measuring 3.8 x 3.3 cm when remeasured in a similar configuration. The smaller left adnexal fluid collections have slightly increased in size in the interim measuring 3.1 x 2.2 cm (image 61, series 2), previously measuring 2.8 x 2.1 cm. There is mild peripheral nodularity may be present. Miscellaneous: No inguinal hernias or adenopathy. No free fluid or loculated fluid collection is evident. Calcification within the subcutaneous tissues overlying the superior right gluteal region likely represents an injection granuloma or site of previous injury. Bones: No suspicious bony lesions. No acute pelvic fractures are identified. Postoperative changes related to right hip arthroplasty are noted. There may be a right hip effusion. IMPRESSION: 1. No definite acute abnormality within the abdomen or pelvis. 2. Probable constipation. No obstruction. 3. Cystic lesions within the pelvis demonstrate variable degrees of change as described. A low-grade neoplastic process cannot be excluded. 4. Mild dilatation of the common bile duct is likely within normal limits given the patient's history of prior cholecystectomy. If there is clinical concern for choledocholithiasis, please consider MRCP for further evaluation. Dictated by: Jermaine Vieyra M.D. on 04/10/2019 at 9:07 ECG Data Attestation: I personally reviewed and interpreted this ECG as follows: Interpretation: Normal sinus rhythm rate [address] changes no T-wave inversions MDM Narrative Medical decision making narrative: Patient appears to have pelvic cysts which may be causing her pain. They do not appear grossly changed she has been seen by Dr. Espinal about this already. She is wanting 2nd 3rd opinion about this whi ch she is working on. She given Dilaudid for pain which seems to help. She is offered an enema which fortunately was not successful. I will prescribe her lactulose to help her with her constipation. She has pain medication already. At this time no indication for admission. Discharge Plan Departure Patient Disposition: Home Clinical Impression: Constipation Qualifiers: Constipation type: unspecified constipation type Qualified Code(s): K59.00 - Constipation, unspecified Discharge Date/Time: 04/10/19 14:22 Interventions: ED Discharge Assessment Last Done: 04/10/19 14:21 Instructions: Constipation Activity Restrictions/Additional Instructions: *You have been diagnosed with constipation *What to do: At this time CT scan continues to show cysts in your pelvic area which may be causing the pain. However no significant increase in size since August. May require surgery consultation *Continue to take medications as directed Lactulose 15mL twice daily until stool--> sent to [facility] in [place] *Follow up with your primary care provider in 2-3 days *Return to ER if you should have increased pain or any new, worsening or concerning symptoms Prescriptions: New lactulose 10 gram/15 mL solution 15 ml PO BID PRN (Reason: constipation) Qty: 473 RF: 0 No Action [MELOXICAM] 15 mg PO AM Qty: 0 RF: 0 [ESTRADIOL] 0.625 mg PO QDAY Qty: 0 RF: 0 Zolpidem Tartrate (Ambien) Qty: 0 RF: 0 diphenhydramine HCl [Benadryl Allergy] 25 MG tablet 50 mg PO Q6HP PRNQty: 0 RF: 0 paroxetine HCl 30 MG tablet 30 mg PO QDAY Qty: 0 RF: 0 amlodipine [Norvasc] 5 MG tablet 5 mg PO BID Qty: 0 RF: 0 sucralfate 1 GM tablet 1 gm PO ACHS Qty: 0 RF: 0 methotrexate sodium (PF) 25 MG/1 ML solution 50 mg IV QWEEK Qty: 0 RF: 0 cholecalciferol (vitamin D3) 5,000 UNIT capsule 5,000 unit PO QDAY Qty: 0 RF: 0 prednisolone [Millipred] 5 MG tablet 5 mg PO QDAY Qty: 0 RF: 0 folic acid 1 MG tablet 1 mg PO QDAY Qty: 0 RF: 0 omega 6-mns-mng-fish oil [Fish Oil] 1,000 MG capsule 1,000 mg PO BID Qty: 0 RF: 0 hydrocodone-acetaminophen [Vicodin] 5 MG/300 MG tablet Qty: 0 RF: 0 hyoscyamine sulfate 0.125 MG tablet,disintegrating 0.125 mg Sublingual Qty: 0 RF: 0 diazepam 5 MG tablet 5 mg PO PRN PRNQty: 0 RF: 0 omeprazole 20 MG tablet,delayed release (DR/EC) 20 mg PO BID Qty: 0 RF: 0 Referrals: Lucina Barnett MD [Non-Staff] -
[2019-04-10 09:28] LABS: Alanine Aminotransferase 13 IU/L (9-52); Albumin 4.2 g/dL (3.5-5.0); Albumin Globulin Ratio 1.6 (1.0-2.8); Alkaline Phosphatase 55 U/L (38-126); Aspartate Aminotransferase 20 IU/L (14-36); Bilirubin Total 0.4 mg/dL (0.2-1.3); Blood Urea Nitrogen 10 mg/dL (7-17); Calcium 10.5 mg/dL (8.4-10.2); Carbon Dioxide 23 mmol/L (22-32); Chloride 97 mmol/L (98-107); Creatine Kinase 39 U/L (30-135); Estimated Glomerular Filt Rate 53.1 mL/min (>60); Globulin 2.6 g/dL (1.7-4.1); Glucose 105 mg/dL (80-110); HEMOLYSIS < 15 (0-50); Lipase 104 U/L (23-300); Potassium 3.5 mmol/L (3.4-5.1); Sodium 131 mmol/L (137-145); Total Protein 6.8 g/dL (6.3-8.2)
[2019-04-10 09:39] LABS: Troponin I 0.014 ng/mL (0.01-0.034)
[2019-04-10 10:09] VITALS: BP 161/76; PULSE 79; RESP 13; O2SAT 99
[2019-04-10 11:36] VITALS: BP 171/78; PULSE 91; RESP 15; O2SAT 98
[2019-04-10 12:00] VITALS: BP 158/78; PULSE 91; RESP 16; O2SAT 100
[2019-04-10] MEDS: HYDROMORPHONE 1 MG INJ 0.5 MG IV (12:25)
[2019-04-10] MEDS: ONDANSETRON 4 MG/2 ML INJ IV (12:31)
[2019-04-10] MEDS: MINERAL OIL 1 EACH ENEMA PR (12:49)
--- NOTE | 2019-04-10 13:01 | PC.NURSE ---
Wayne enema given, BSC at bedside. Patient states she's used enemas numerous times at home and is familiar with how they work. Patient rates pain as 2/10 after Dilaudid and has no c/o nausea. patient resting on right side on stretcher and is awaiting stool results. Call light within reach.
--- NOTE | 2019-04-10 13:59 | PC.NURSE ---
Patient family updated on plan of care. Waiting in lobby for patient. Patient resting comfortably and is free of pain. Pt contemplating wanting to go home.
[2019-04-10] MEDS: KETOROLAC 60 MG/2 ML VIAL 15 MG IV (14:05)
[2019-04-10 14:06] VITALS: BP 144/80; PULSE 77; RESP 16; O2SAT 99
== END 2019-04-10 14:22 | disposition home or self-care (01) ==
PROVIDERS: Emergency Provider Emergency Medicine
DX: K59.00 Constipation, unspecified (principal); R10.13 Epigastric pain; R07.9 Chest pain, unspecified; R03.0 Elevated blood-pressure reading, without diagnosis of hypertension
CPT/HCPCS: 36591; 71045; 74177; 76705; 80053; 82550; 83690; 84484; 85025; 93005; 93010; 96361; 96374; 96375; 99283; 99285; J1170; J1885; J2405; Q9967

== ENCOUNTER → 2019-09-14 13:56 | Outpatient (CLI) | payer OTHER, MEDICAID, SELFPAY ==
[2019-09-14 18:54] LABS: Vitamin D 25 Hydroxy (D3) 61.8 ng/mL (30.0-100.0)
== END ==
PROVIDERS: Visit Provider Internal Medicine Endocrinology, Diabetes & Metabolism
DX: E21.3 Hyperparathyroidism, unspecified (principal); E83.52 Hypercalcemia; N18.3 Chronic kidney disease, stage 3 (moderate); M81.0 Age-related osteoporosis without current pathological fracture
CPT/HCPCS: 36415; 82306

== ENCOUNTER 2020-02-28 18:05 | Observation (INO) | payer OTHER, MEDICAID, SELFPAY ==
[2020-02-28] VITALS (7 sets, daily range): BP systolic 123–160; BP diastolic 58–68; PULSE 60–82; RESP 12–18; TEMP 36.6–37.3; O2SAT 96–100; BMI 23.3
--- NOTE | 2020-02-28 18:18 | ED.AMS ---
HPI - Altered Mental Status General Chief Complaint: Altered Mental Status Stated Complaint: Confusion Time Seen by Provider: 02/28/20 18:05 Source: patient and EMS Mode of arrival: EMS Limitations: no limitations History of Present Illness HPI narrative: 84-year-old female former smoker with history of hypertension and some chronic abdominal issues presents by EMS for evaluation of approximately 6 days of episodes of confusion. She has had a low-grade fever as high as 99 and complains of increasing restless leg at night and is therefore getting less sleep but otherwise has very little in the way of complaints. She denies runny nose, sore throat or cough. She denies any chest pain or shortness of breath. She denies nausea, vomiting or diarrhea. She has been treated for a chronic autoimmune skin rash for 3-4 years with Benadryl and prednisone and also takes sleeping medications. Dysuria, frequency or urgency. She has been very strict about social distance sitting and denies any exposure to persons known to be diagnosed with or under suspicion for COVID-19. She lives at home with her daughter who is her primary caregiver. She states that she has episodes daily where she becomes confused and then a return to her baseline without any apparent provocation or palliation MD complaint: altered mental status Timing confirmed by: family member Severity: mild Consistency of symptoms: waxing and waning Associated symptoms: fever Related Data Home Medications Medication Instructions Recorded Confirmed Zolpidem Tartrate (Ambien) #0 12/24/10 [ESTRADIOL] 0.625 mg PO QDAY #0 12/24/10 [MELOXICAM] 15 mg PO AM #0 12/24/10 diphenhydramine HCl [Benadryl 50 mg PO Q6HP PRN #0 05/11/16 Allergy] paroxetine HCl 30 mg PO QDAY #0 05/11/16 amlodipine [Norvasc] 5 mg PO BID #0 06/13/17 cholecalciferol (vitamin D3) 5,000 unit PO QDAY #0 06/13/17 diazepam 5 mg PO PRN PRN #0 06/13/17 folic acid 1 mg PO QDAY #0 06/13/17 hydrocodone-acetaminophen [Vicodin] #0 06/13/17 hyoscyamine sulfate 0.125 mg SUBLINGUAL #0 06/13/17 methotrexate sodium (PF) 50 mg IV QWEEK #0 06/13/17 omega [id number] oil [Fish Oil] 1,000 mg PO BID #0 06/13/17 omeprazole 20 mg PO BID #0 06/13/17 prednisolone [Millipred] 5 mg PO QDAY #0 06/13/17 sucralfate 1 gm PO ACHS #0 06/13/17 Previous Rx's Medication Instructions Recorded lactulose 15 ml PO BID PRN #473 ml 04/10/19 Allergies Allergy/AdvReac Type Severity Reaction Status Date / Time erythromycin base Allergy Severe swelling Verified 02/28/20 18:14 [ERYTHROMYCIN BASE] amoxicillin [AMOXICILLIN] Allergy Intermediate diarhhea Verified 02/28/20 18:14 balsam shemar [BALSAM SHEMAR] Allergy Intermediate rash Verified 02/28/20 18:14 bronopol [BRONOPOL] Allergy Intermediate rash Verified 02/28/20 18:14 cefdinir [CEFDINIR] Allergy Intermediate stomach Verified 02/28/20 18:14 ache cobalt [COBALT] Allergy Intermediate rash Verified 02/28/20 18:14 propylene glycol Allergy Intermediate rash Verified 02/28/20 18:14 [PROPYLENE GLYCOL] Sulfa (Sulfonamide Allergy Intermediate nausea Verified 02/28/20 18:14 Antibiotics) [SULFA (SULFONAMIDE ANTIBIOTICS)] morphine [MORPHINE] Allergy Unknown Verified 02/28/20 18:14 Review of Systems Constitutional Constitutional: Denies chills, Denies fatigue, Reports fever(s), Denies frequent falls, Denies lethargy and Denies weakness Eyes Eyes: Denies change in vision, Denies eye discharge, Denies irritation and Denies loss of vision ENT Ears, Nose, Mouth, and Throat: Denies change in voice, Denies dizziness, Denies neck pain, Denies sore throat and Denies throat swelling Cardiovascular Cardiovascular: Denies chest pain, Denies irregular heart rhythm, Denies lightheadedness, Denies palpitations, Denies dyspnea, Denies dyspnea on exertion and Denies orthopnea Respiratory Respiratory: Denies cough, Denies dyspnea, Denies dyspnea on exertion and Denies wheezing Gastrointestinal Gastrointestinal: Denies abdominal pain, Denies change in bowel habits, Denies diarrhea, Denies nausea and Denies vomiting Genitourinary Genitourinary: Denies hematuria, Denies flank pain, Denies urinary incontinence and Denies urinary urgency Musculoskeletal Musculoskeletal: Denies back pain, Denies muscle weakness, Denies neck pain, Denies numbness and Denies tingling Integumentary/Breasts Skin/Breast: Denies pruritus, Denies erythema, Denies rash and Denies wounds Neurologic Neurologic: Denies behavioral changes, Reports confusion, Denies dizziness, Denies frequent falls, Denies loss of vision, Denies numbness, Denies tingling and Denies weakness Psychiatric Psychiatric: Denies anxiety, Denies behavioral changes, Reports confusion, Denies depression, Denies homicidal ideation and Denies suicidal ideation Endocrine Endocrine: Denies fatigue, Denies flushing and Denies palpitations Hematologic/Lymphatic Hematologic/Lymphatic: Denies easy bruising Allergic/Immunologic Allergic/Immunologic: Denies urticaria, Denies throat swelling and Denies wheezing Patient History Medical History Diverticulosis (Acute) Social History household members: family Smoking Status: Former smoker Smoking Status: Former smoker Substance Use Type: does not use Exam Narrative Exam Narrative: GENERAL: [84] year old patient appears stated age. Well-nourished, well-developed patient, in mild distress. HEAD: Atraumatic. Normocephalic. EYES: Pupils equal round and reactive. Extraocular motions intact. No scleral icterus. No injection or drainage. ENT: Dry mucous membranes. Nose without bleeding, purulent drainage. Throat without erythema, tonsillar hypertrophy or exudate. Airway patent. NECK: Trachea midline. Non tender CARDIOVASCULAR: Regular rate and rhythm without murmurs, gallops, or rubs. RESPIRATORY: Clear to auscultation. Breath sounds equal bilaterally. No wheezes, rales, or rhonchi. GASTROINTESTINAL: Abdomen soft, non-tender, nondistended. EXTREMITIES: No edema or joint tenderness. BACK: Nontender without deformity or crepitance. No flank tenderness. NEURO: AOx3. SKIN: Poor skin turgor No rash or erythema of visible areas Initial Vital Signs Initial Vital Signs: Vital Signs Temperature 99.2 F 02/28/20 18:09 Pulse Rate 62 02/28/20 18:09 Respiratory Rate 18 02/28/20 18:09 Blood Pressure 139/62 02/28/20 18:09 Pulse Oximetry 96 02/28/20 18:09 Course Orders Ordered: ED Orders 02/28/20 20:45 Basic Metabolic Panel Stat Hydrocodone Bitart/Acetaminophen ([place] 5/325) 1 tab PO Q6HR PRN PRN Reason: Pain, Moderate (4-6) Amlodipine Besylate (Norvasc) 5 mg PO BID CYRUS Last Admin: 02/29/20 01:08 Dose: 5 mg Documented by: DEBBI Diphenhydramine HCl (Benadryl) 50 mg PO Q6H PRN PRN Reason: Agitation Last Admin: 02/29/20 01:08 Dose: 50 mg Documented by: DEBBI Sodium Chloride (Normal Saline 0.9%) 1,000 mls @ 125 mls/hr IV CONT CYRUS Last Admin: 02/28/20 22:28 Dose: 125 mls/hr Documented by: ALLISON Sucralfate (Carafate) 1 gm PO ACHS CYRUS Trazodone HCl (Desyrel) 200 mg PO BEDTIME CYRUS Discontinued Medications Sodium Chloride (Normal Saline 0.9%) 1,000 mls @ 150 mls/hr IV CONT CYRUS Last Infusion: 02/28/20 20:54 Dose: 500 mls/hr Documented by: Infusion: 02/28/20 19:17 Dose: 500 mls/hr Documented by: Infusion: 02/28/20 18:34 Dose: 500 mls/hr Documented by: Admin: 02/28/20 18:27 Dose: 150 mls/hr Documented by: AKUA Sodium Chloride (Normal Saline 0.9%) 1,000 mls @ 1,000 mls/hr IV BOLUS ONE Stop: 02/28/20 20:15 Last Infusion: 02/28/20 21:54 Dose: 1,000 mls/hr Documented by: Admin: 02/28/20 20:53 Dose: 1,000 mls/hr Documented by: ALLISON Trazodone HCl (Desyrel) 200 mg PO BEDTIME ONE Stop: 02/29/20 00:59 Last Admin: 02/29/20 01:09 Dose: 200 mg Documented by: DEBBI Vital Signs Vital signs: Vital Signs - 8 hr 02/28/20 21:41 02/28/20 21:49 Pulse Rate 81 Pulse Rate [Orthostatic Lying] 76 Pulse Rate [Orthostatic Sitting] 78 Pulse Rate [Orthostatic Standing] 82 Respiratory Rate 12 Blood Pressure [Orthostatic Lying] 125/58 L Blood Pressure [Orthostatic Sitting] 127/68 Blood Pressure [Orthostatic Standing] 160/66 H Blood Pressure [Right Arm] 160/66 H Pulse Oximetry 96 MDM - Altered Mental Status Lab Data Result diagrams: 02/28/20 18:23 02/28/20 20:45 Labs: Lab Results 02/28/20 02/28/20 02/28/20 Range/Units 18: 18:23 18:23 WBC 9.8 (4.5-11.0) X10^3/uL RBC 4.20 (4.0-5.2) X10^6/uL Hgb 11.0 L (12.0-16.0) g/dL Hct 33.4 L (36-46) % MCV 79.4 L (80-100) fL MCH 26.1 (26-34) PG MCHC 32.9 (30-36) % RDW 17.0 H (11.6-14.8) % Plt Count 254 (150-400) X10^3/uL Neut % (Auto) 83.2 H (50-75) % Lymph % (Auto) 10.4 L (25-40) % Bartholomew % (Auto) 5.4 (3-14) % Eos % (Auto) 0.4 L (2-4) % Baso % (Auto) 0.6 (0-2) % Neut # (Auto) 8100 H (2249-5603) /uL Lymph # (Auto) 1000 L (2024-8224) /uL Bartholomew # (Auto) 500 (0-900) /uL Eos # (Auto) 0 (0-450) /uL Baso # (Auto) 100 (0-100) /uL PT 11.0 (10.1-12.7) SECONDS INR 1.0 (0.9-1.3) APTT 27 (26.4-36.2) SECONDS Sodium (137-145) mmol/L Potassium (3.4-5.1) mmol/L Chloride (98-107) mmol/L Carbon Dioxide (22-32) mmol/L BUN (7-17) mg/dL Creatinine (0.52-1.04) mg/dL Estimated GFR (>60) mL/min BUN/Creatinine Ratio (6-22) Glucose (80-110) mg/dL Lactate 1.0 (0.7-2.1) mmol/L Calcium (8.4-10.2) mg/dL Total Bilirubin (0.2-1.3) mg/dL AST (14-36) IU/L ALT (<35) IU/L Alkaline Phosphatase (38-126) U/L Total Creatine Kinase (30-135) U/L CK-MB (CK-2) CK-MB (CK-2) Rel Index Troponin I (0.01-0.034) ng/mL Total Protein (6.3-8.2) g/dL Albumin (3.5-5.0) g/dL Globulin (1.7-4.1) g/dL Albumin/Globulin Ratio (1.0-2.8) Procalcitonin (<0.5) ng/mL Prolactin (3.0-18.6) ng/mL Urine Color Urine Appearance Urine pH (4.5-8.0) Ur Specific [place] (1.000-1.035) Urine Protein (Negative) Urine Glucose (UA) (Negative) g/dL Urine Ketones (NEGATIVE) Urine Occult Blood (Negative) Urine Nitrate (Negative) Urine Bilirubin (NEGATIVE) Urine Urobilinogen (0.2) E.U./dL Ur Leukocyte Esterase (NEGATIVE) Urine RBC (0-5/HPF) Urine WBC (0-5/HPF) Ur Squamous Epith Cells (0-5/HPF) Urine Bacteria (None) Ur Culture Indicated? U Opiates 300ng/mL cut (Negative) Ur Oxycodone Screen (Negative) Urine Methadone Screen (Negative) Ur Barbiturates Screen (Negative) U Tricyclic Antidepress (Negative) Ur Phencyclidine Scrn (Negative) Ur Amphetamines Screen (Negative) U Methamphetamines Scrn (Negative) Ur MDMA Scrn (Ecstasy) (Negative) U Benzodiazepines Scrn (Negative) Urine Cocaine Screen (Negative) U Marijuana (THC) Screen (Negative) COVID-19 PCR 02/28/20 02/28/20 02/28/20 Range/Units 18:23 18:23 18:23 WBC (4.5-11.0) X10^3/uL RBC (4.0-5.2) X10^6/uL Hgb (12.0-16.0) g/dL Hct (36-46) % MCV (80-100) fL MCH (26-34) PG MCHC (30-36) % RDW (11.6-14.8) % Plt Count (150-400) X10^3/uL Neut % (Auto) (50-75) % Lymph % (Auto) (25-40) % Bartholomew % (Auto) (3-14) % Eos % (Auto) (2-4) % Baso % (Auto) (0-2) % Neut # (Auto) (5021-2737) /uL Lymph # (Auto) (2899-1199) /uL Bartholomew # (Auto) (0-900) /uL Eos # (Auto) (0-450) /uL Baso # (Auto) (0-100) /uL PT (10.1-12.7) SECONDS INR (0.9-1.3) APTT (26.4-36.2) SECONDS Sodium 131 L (137-145) mmol/L Potassium 5.3 H (3.4-5.1) mmol/L Chloride 109 H (98-107) mmol/L Carbon Dioxide 26 (22-32) mmol/L BUN 29 H (7-17) mg/dL Creatinine 1.70 H (0.52-1.04) mg/dL Estimated GFR 28.7 L (>60) mL/min BUN/Creatinine Ratio 17.1 (6-22) Glucose 120 H (80-110) mg/dL Lactate (0.7-2.1) mmol/L Calcium 10.7 H (8.4-10.2) mg/dL Total Bilirubin 0.2 (0.2-1.3) mg/dL AST 24 (14-36) IU/L ALT 14 (<35) IU/L Alkaline Phosphatase 42 (38-126) U/L Total Creatine Kinase 26 L (30-135) U/L CK-MB (CK-2) TNP CK-MB (CK-2) Rel Index TNP Troponin I < 0.012 (0.01-0.034) ng/mL Total Protein 7.0 (6.3-8.2) g/dL Albumin 4.2 (3.5-5.0) g/dL Globulin 2.8 (1.7-4.1) g/dL Albumin/Globulin Ratio 1.5 (1.0-2.8) Procalcitonin < 0.05 Cancelled (<0.5) ng/mL Prolactin 31.6 H (3.0-18.6) ng/mL Urine Color Urine Appearance Urine pH (4.5-8.0) Ur Specific [place] (1.000-1.035) Urine Protein (Negative) Urine Glucose (UA) (Negative) g/dL Urine Ketones (NEGATIVE) Urine Occult Blood (Negative) Urine Nitrate (Negative) Urine Bilirubin (NEGATIVE) Urine Urobilinogen (0.2) E.U./dL Ur Leukocyte Esterase (NEGATIVE) Urine RBC (0-5/HPF) Urine WBC (0-5/HPF) Ur Squamous Epith Cells (0-5/HPF) Urine Bacteria (None) Ur Culture Indicated? U Opiates 300ng/mL cut (Negative) Ur Oxycodone Screen (Negative) Urine Methadone Screen (Negative) Ur Barbiturates Screen (Negative) U Tricyclic Antidepress (Negative) Ur Phencyclidine Scrn (Negative) Ur Amphetamines Screen (Negative) U Methamphetamines Scrn (Negative) Ur MDMA Scrn (Ecstasy) (Negative) U Benzodiazepines Scrn (Negative) Urine Cocaine Screen (Negative) U Marijuana (THC) Screen (Negative) COVID-19 PCR 02/28/20 02/28/20 02/28/20 Range/Units 19:20 19:36 19:36 WBC (4.5-11.0) X10^3/uL RBC (4.0-5.2) X10^6/uL Hgb (12.0-16.0) g/dL Hct (36-46) % MCV (80-100) fL MCH (26-34) PG MCHC (30-36) % RDW (11.6-14.8) % Plt Count (150-400) X10^3/uL Neut % (Auto) (50-75) % Lymph % (Auto) (25-40) % Bartholomew % (Auto) (3-14) % Eos % (Auto) (2-4) % Baso % (Auto) (0-2) % Neut # (Auto) (5989-9581) /uL Lymph # (Auto) (9191-4354) /uL Bartholomew # (Auto) (0-900) /uL Eos # (Auto) (0-450) /uL Baso # (Auto) (0-100) /uL PT (10.1-12.7) SECONDS INR (0.9-1.3) APTT (26.4-36.2) SECONDS Sodium (137-145) mmol/L Potassium (3.4-5.1) mmol/L Chloride (98-107) mmol/L Carbon Dioxide (22-32) mmol/L BUN (7-17) mg/dL Creatinine (0.52-1.04) mg/dL Estimated GFR (>60) mL/min BUN/Creatinine Ratio (6-22) Glucose (80-110) mg/dL Lactate (0.7-2.1) mmol/L Calcium (8.4-10.2) mg/dL Total Bilirubin (0.2-1.3) mg/dL AST (14-36) IU/L ALT (<35) IU/L Alkaline Phosphatase (38-126) U/L Total Creatine Kinase (30-135) U/L CK-MB (CK-2) CK-MB (CK-2) Rel Index Troponin I (0.01-0.034) ng/mL Total Protein (6.3-8.2) g/dL Albumin (3.5-5.0) g/dL Globulin (1.7-4.1) g/dL Albumin/Globulin Ratio (1.0-2.8) Procalcitonin (<0.5) ng/mL Prolactin (3.0-18.6) ng/mL Urine Color Yellow Urine Appearance Clear Urine pH 6.0 (4.5-8.0) Ur Specific [place] 1.010 (1.000-1.035) Urine Protein Negative (Negative) Urine Glucose (UA) Negative (Negative) g/dL Urine Ketones Negative (NEGATIVE) Urine Occult Blood Negative (Negative) Urine Nitrate Negative (Negative) Urine Bilirubin Negative (NEGATIVE) Urine Urobilinogen 0.2 (0.2) E.U./dL Ur Leukocyte Esterase Negative (NEGATIVE) Urine RBC 0-1/hpf (0-5/HPF) Urine WBC 0-1/hpf (0-5/HPF) Ur Squamous Epith Cells 5-10 /hpf H (0-5/HPF) Urine Bacteria None seen (None) Ur Culture Indicated? Cult not indicated U Opiates 300ng/mL cut Positive H (Negative) Ur Oxycodone Screen Negative (Negative) Urine Methadone Screen Negative (Negative) Ur Barbiturates Screen Negative (Negative) U Tricyclic Antidepress Negative (Negative) Ur Phencyclidine Scrn Negative (Negative) Ur Amphetamines Screen Negative (Negative) U Methamphetamines Scrn Negative (Negative) Ur MDMA Scrn (Ecstasy) Negative (Negative) U Benzodiazepines Scrn Negative (Negative) Urine Cocaine Screen Negative (Negative) U Marijuana (THC) Screen Negative (Negative) COVID-19 PCR Cancelled 02/28/20 Range/Units 20:45 WBC (4.5-11.0) X10^3/uL RBC (4.0-5.2) X10^6/uL Hgb (12.0-16.0) g/dL Hct (36-46) % MCV (80-100) fL MCH (26-34) PG MCHC (30-36) % RDW (11.6-14.8) % Plt Count (150-400) X10^3/uL Neut % (Auto) (50-75) % Lymph % (Auto) (25-40) % Bartholomew % (Auto) (3-14) % Eos % (Auto) (2-4) % Baso % (Auto) (0-2) % Neut # (Auto) (7414-7450) /uL Lymph # (Auto) (2389-7617) /uL Bartholomew # (Auto) (0-900) /uL Eos # (Auto) (0-450) /uL Baso # (Auto) (0-100) /uL PT (10.1-12.7) SECONDS INR (0.9-1.3) APTT (26.4-36.2) SECONDS Sodium 132 L (137-145) mmol/L Potassium 4.5 (3.4-5.1) mmol/L Chloride 111 H (98-107) mmol/L Carbon Dioxide 26 (22-32) mmol/L BUN 27 H (7-17) mg/dL Creatinine 1.55 H (0.52-1.04) mg/dL Estimated GFR 31.9 L (>60) mL/min BUN/Creatinine Ratio 17.4 (6-22) Glucose 102 (80-110) mg/dL Lactate (0.7-2.1) mmol/L Calcium 9.6 (8.4-10.2) mg/dL Total Bilirubin (0.2-1.3) mg/dL AST (14-36) IU/L ALT (<35) IU/L Alkaline Phosphatase (38-126) U/L Total Creatine Kinase (30-135) U/L CK-MB (CK-2) CK-MB (CK-2) Rel Index Troponin I (0.01-0.034) ng/mL Total Protein (6.3-8.2) g/dL Albumin (3.5-5.0) g/dL Globulin (1.7-4.1) g/dL Albumin/Globulin Ratio (1.0-2.8) Procalcitonin (<0.5) ng/mL Prolactin (3.0-18.6) ng/mL Urine Color Urine Appearance Urine pH (4.5-8.0) Ur Specific [place] (1.000-1.035) Urine Protein (Negative) Urine Glucose (UA) (Negative) g/dL Urine Ketones (NEGATIVE) Urine Occult Blood (Negative) Urine Nitrate (Negative) Urine Bilirubin (NEGATIVE) Urine Urobilinogen (0.2) E.U./dL Ur Leukocyte Esterase (NEGATIVE) Urine RBC (0-5/HPF) Urine WBC (0-5/HPF) Ur Squamous Epith Cells (0-5/HPF) Urine Bacteria (None) Ur Culture Indicated? U Opiates 300ng/mL cut (Negative) Ur Oxycodone Screen (Negative) Urine Methadone Screen (Negative) Ur Barbiturates Screen (Negative) U Tricyclic Antidepress (Negative) Ur Phencyclidine Scrn (Negative) Ur Amphetamines Screen (Negative) U Methamphetamines Scrn (Negative) Ur MDMA Scrn (Ecstasy) (Negative) U Benzodiazepines Scrn (Negative) Urine Cocaine Screen (Negative) U Marijuana (THC) Screen (Negative) COVID-19 PCR ECG Data Attestation: I personally reviewed and interpreted this ECG as follows: Interpretation: EKG is atrial paced rate [ 60] and free of any signs of ischemia or ectopy. No ST segmental elevation or depression. No T wave inversions MDM Narrative Medical decision making narrative: 84F with a few days of worsening sense of feeling unwell. Baseline creatinine is 1.0 and today has bump to 1.7. After Over 1L she improves only to 1.55 and still very poor ambulation. She will require admission for stabilization of her hydration and renal status Discharge Plan Departure Patient Disposition: Admitted As Inpatient Clinical Impression: Acute kidney injury, Weakness Discharge Date/Time: 02/28/20 22:00 Referrals: Lucina Barnett MD [Primary Care Provider] - Admit Date/Time: 02/28/20 22:05 Admit Provider: Lucina Barnett
[2020-02-28 18:27] LABS: Add Manual Diff / Slide Review NO; Basophils Absolute Auto 100 /uL (0-100); Basophils Percent Auto 0.6 % (0-2); Eosinophils Absolute Auto 0 /uL (0-450); Eosinophils Percent Auto 0.4 % (2-4); Hematocrit 33.4 % (36-46); Lymphocytes Absolute Auto 1000 /uL (1100-4500); Lymphocytes Percent Auto 10.4 % (25-40); Mean Corpuscular HGB Conc 32.9 % (30-36); Mean Corpuscular Hemoglobin 26.1 PG (26-34); Mean Corpuscular Volume 79.4 fL (80-100); Monocytes Absolute Auto 500 /uL (0-900); Monocytes Percent Auto 5.4 % (3-14); Neutrophils Absolute Auto 8100 /uL (1500-7000); Neutrophils Percent Auto 83.2 % (50-75); Platelet Count 254 X10^3/uL (150-400); White Blood Cell Count 9.8 X10^3/uL (4.5-11.0)
[2020-02-28] MEDS: SODIUM CHLORIDE 0.9% 1,000 ML 150 ML IV (18:27)
[2020-02-28 18:31] LABS: PTT Partial Thromboplastin Tim 27 SECONDS (26.4-36.2)
[2020-02-28 18:38] LABS: Alanine Aminotransferase 14 IU/L (<35); Albumin 4.2 g/dL (3.5-5.0); Albumin Globulin Ratio 1.5 (1.0-2.8); Alkaline Phosphatase 42 U/L (38-126); Aspartate Aminotransferase 24 IU/L (14-36); BUN Creatinine Ratio 17.1 (6-22); Bilirubin Total 0.2 mg/dL (0.2-1.3); Blood Urea Nitrogen 29 mg/dL (7-17); Calcium 10.7 mg/dL (8.4-10.2); Carbon Dioxide 26 mmol/L (22-32); Chloride 109 mmol/L (98-107); Creatine Kinase 26 U/L (30-135); Estimated Glomerular Filt Rate 28.7 mL/min (>60); Globulin 2.8 g/dL (1.7-4.1); Glucose 120 mg/dL (80-110); HEMOLYSIS < 15 (0-50); Potassium 5.3 mmol/L (3.4-5.1); Sodium 131 mmol/L (137-145)
[2020-02-28 18:50] LABS: Troponin I < 0.012 ng/mL (0.01-0.034)
[2020-02-28 18:55] LABS: Prolactin 31.6 ng/mL (3.0-18.6)
[2020-02-28 19:10] LABS: Procalcitonin < 0.05 ng/mL (<0.5)
--- NOTE | 2020-02-28 19:12 | DI.RAD.S_ITS ---
PROCEDURE: XR CHEST 1V INDICATIONS: fatigue, fever, confusion, short of breath TECHNIQUE: One view of the chest was acquired. COMPARISON: [facility], CR, XR CHEST 1V, 04/10/2019, 9:49. FINDINGS: Surgical changes and devices: Dual-lead left-sided subclavian pacemaker. Overlying monitoring analyst wires. Surgical clips in the gallbladder fossa. Lungs and pleura: Lungs demonstrate coarse interstitial markings without focal consolidation. No pleural effusions or pneumothorax. Mediastinum: Mediastinal contours appear normal. Heart size is normal. Bones and chest wall: Moderate dextroscoliosis. No suspicious bony lesions. Overlying soft tissues appear unremarkable. IMPRESSION: No acute cardiopulmonary disease. Dictated by: Andreina Clifford M.D. on 02/28/2020 at 20:40 Approved by: Andreina Clifford M.D. on 02/28/2020 at 20:40
[2020-02-28 19:42] LABS: Bacteria Urine None Seen
[2020-02-28 19:44] LABS: Appearance Urine UA CLEAR; Bilirubin Urine UA NEGATIVE (NEGATIVE); Color Urine UA YELLOW; Glucose Urine UA NEGATIVE (Negative); Ketones Urine UA NEGATIVE (NEGATIVE); Leukocyte Esterase Urine UA NEGATIVE (NEGATIVE); Nitrite Urine UA NEGATIVE (Negative); Occult Blood Urine UA NEGATIVE (Negative); Protein Urine UA NEGATIVE (Negative); Urobilinogen Urine UA 0.2 E.U./dL (0.2)
[2020-02-28 19:49] LABS: Ur Creatinine Normal (Normal)
[2020-02-28 19:50] LABS: UR Morphine/Opiate cutoff 300 Positive (Negative); Ur Specific Gravity Normal (Normal); Urine Amphetamines Negative (Negative); Urine Barbiturates Negative (Negative); Urine Benzodiazepines Negative (Negative); Urine Cocaine Negative (Negative); Urine MDMA Negative (Negative); Urine Methadone Negative (Negative); Urine Methamphetamines Negative (Negative); Urine Oxycodone Negative (Negative); Urine Phencyclidine Negative (Negative); Urine Tetrahydrocannabinol Negative (Negative); Urine Tricyclic Antidepressant Negative (Negative); Urine pH Normal (Normal)
[2020-02-28 20:07] LABS: Culture Indicated Urine Cult Not Indicated; RBC Urine 0-1/HPF (0-5/HPF); Squamous Epithelial Cell Urine 5-10 /HPF (0-5/HPF); WBC Urine 0-1/HPF (0-5/HPF)
[2020-02-28] MEDS: SODIUM CHLORIDE 0.9% 1,000 ML 1000 ML IV (20:53)
[2020-02-28 21:11] LABS: BUN Creatinine Ratio 17.4 (6-22); Blood Urea Nitrogen 27 mg/dL (7-17); Calcium 9.6 mg/dL (8.4-10.2); Carbon Dioxide 26 mmol/L (22-32); Chloride 111 mmol/L (98-107); Estimated Glomerular Filt Rate 31.9 mL/min (>60); Glucose 102 mg/dL (80-110); HEMOLYSIS < 15 (0-50); Potassium 4.5 mmol/L (3.4-5.1); Sodium 132 mmol/L (137-145)
[2020-02-28] MEDS: SODIUM CHLORIDE 0.9% 1,000 ML 125 ML IV (22:28)
[2020-02-28 23:22] LABS: COVID19 -Nasal RAPID Negative (Negative)
[2020-02-29] MEDS: AMLODIPINE 5 MG TABLET PO ×3 (01:08→20:19)
[2020-02-29] MEDS: diphenhydrAMINE 25 MG TABLET 50 MG PO (01:08)
[2020-02-29] MEDS: TRAZODONE 100 MG TABLET 200 MG PO ×2 (01:09→20:20)
[2020-02-29] MEDS: HYDROCODONE/ACET 5/325 TABLET 1 TAB PO ×2 (05:21→11:51)
[2020-02-29 06:06] LABS: Add Manual Diff / Slide Review NO; Basophils Absolute Auto 0 /uL (0-100); Basophils Percent Auto 0.6 % (0-2); Eosinophils Absolute Auto 200 /uL (0-450); Eosinophils Percent Auto 2.3 % (2-4); Hematocrit 30.1 % (36-46); Hemoglobin 9.9 g/dL (12.0-16.0); Lymphocytes Absolute Auto 1700 /uL (1100-4500); Lymphocytes Percent Auto 21.8 % (25-40); Mean Corpuscular HGB Conc 32.8 % (30-36); Mean Corpuscular Hemoglobin 26.3 PG (26-34); Monocytes Absolute Auto 800 /uL (0-900); Monocytes Percent Auto 9.6 % (3-14); Neutrophils Absolute Auto 5200 /uL (1500-7000); Neutrophils Percent Auto 65.7 % (50-75); Platelet Count 216 X10^3/uL (150-400); Red Blood Cell Count 3.76 X10^6/uL (4.0-5.2); Red Cell Distribution Width 16.5 % (11.6-14.8); White Blood Cell Count 7.9 X10^3/uL (4.5-11.0)
[2020-02-29 06:18] LABS: BUN Creatinine Ratio 16.2 (6-22); Blood Urea Nitrogen 19 mg/dL (7-17); Calcium 9.5 mg/dL (8.4-10.2); Carbon Dioxide 26 mmol/L (22-32); Chloride 117 mmol/L (98-107); Estimated Glomerular Filt Rate 44.2 mL/min (>60); Glucose 78 mg/dL (80-110); HEMOLYSIS < 15 (0-50); Potassium 3.8 mmol/L (3.4-5.1); Sodium 139 mmol/L (137-145)
[2020-02-29 08:00] VITALS: BP 141/59; PULSE 61; RESP 17; TEMP 36.2; O2SAT 98
[2020-02-29] MEDS: SODIUM CHLORIDE 0.9% 1,000 ML 125 ML IV (09:13)
[2020-02-29] MEDS: SUCRALFATE 1 GM TABLET PO ×4 (09:13→20:20)
--- NOTE | 2020-02-29 10:50 | CM.DANOTE ---
Addendum entered by Daysi Jeong R.N. 02/29/20 14:08: Dr. Pack signed a face to face for home health. Called and spoke to patient's daughter, Autumn, who had already been updated by Dr. Pack. Daughter stated, home health is a great idea. Asked her if she had any preferences on home health agencies. She mentioned, no preference, but used [facility] several years ago. Calendar for the week states [facility]. Went ahead and called Damon at [facility], and gave him update on patient. Faxed over face sheet, H&P. Let Caron know that face to face, orders, and discharge summary will be faxed upon discharge which likely will occur tomorrow. Added nursing, P.T, and O.T. Addendum entered by Daysi Jeong R.N. 02/29/20 12:14: Updated Dr. Pack on patient's living situation. She will contact daughter, Autumn. Mentioned that patient could potentially need shelter. She placed P.T/O.T. orders, for patient has jasper, and will be needed for [facility] to approve. Will see how conversation goes with provider and daughter, and will follow up with daughter later today. Original Note: DCP: Case received, EMR reviewed and checked on patient. She was sleeping. Called patient's daughter, NAYELI, named Autumn Perales. Her phone number is: [phone]. Confirmed that patient lives with her, and she is also her primary caregiver. Was able to obtain information from Autumn regarding patient's baseline activity level, health, and living situation. Patient is an 84 year old female who admitted yesterday to the care of the hospitalist team. PCP: Dr. Barnett. Payer: confirmed: [facility] Advantage/Medicaid. Patient came to the hospital secondary to having increased confusion/altered mental status. She holds current diagnosis of acute kidney injury. Patient also noted a low grade temp upon admission. Daughter, Autumn, had called Dr. Barnett with patient's symptoms of increased confusion, and encouraged her to send patient to the hospital, via EMS. Patient resides with her daughter Autumn Perales, who is also her DPOA. She stated that patient does not use a walker at home, but gets around holding on to the mena. Daughter stated that her mother has chronic pain, secondary to spinal issues, and can shower on her own as long as she takes her pain medication. Daughter prepares her meals as well. Asked daughter if she has ever used home health, and stated that they did when she had her hip surgery a few years ago. Daughter called back and inquired if patient is observation or inpatient. Stated that this transplant case manager discussed with UR, and confirmed that she is observation status. Daughter concerned about services being paid for. Encouraged her to call [facility] and discuss. She also has Medicaid as secondary, and is uncertain if they will sampler pickup any services. P: DCP to follow. She does not yet have P.T. orders, can inquire with provider upon visit. Home Health may be beneficial as well, and will need face to face signed upon discharge. Daysi Jeong RN/[employer]
[2020-02-29 11:35] VITALS: BP 146/56; PULSE 66; RESP 17; TEMP 36.6; O2SAT 100
--- NOTE | 2020-02-29 12:38 | P.HP_ITS ---
History of Present Illness History of Present Illness Date Patient Seen: 02/29/20 Time Patient Seen: 12:50 Date of Onset of Symptoms: 02/23/20 Chief complaint: Confusion Narrative: This pleasant 84-year-old female who appears younger than her stated age presents to emergency department via emergency medical system due to weakness and inability to walk. Patient has a history of multiple medical problems including depression and chronic pain issues and chronically on hydrocodone. She lives with her daughter here in [facility] and has had a 6 day worsening of cognition as well as progressive weakness to the point on day of admission she was unable to ambulate. She was noted at home to have O2 sats in the low 90s and a temperature a 99.4? with a usual normal temperature of 96?. She was evaluated in the emergency department and found to have acute dehydration and acute on chronic kidney disease. She was admitted for IV fluid rehydration and further evaluation. COVID-19 testing was negative. Patient is alert and good historian today. She is feeling better. She is still feeling weak. She has chronic pain issues in her abdomen and her joints but no chest pain or shortness of breath. She denies headaches. She has been afebrile overnight and O2 sats have been normal on room air . Past medical history: 1. Hyperparathyroidism 2. Hypertension 3. Chronic kidney disease 4. Depression 5. Peripheral neuropathy 6. Insomnia 7. Hyponatremia 8. Sick sinus syndrome status post cardiac pacemaker placement by Dr. Katie Castro 9. Osteoporosis 10. Chronic pain due to degenerative joint disease possible autoimmune disease not specified 11. Narcotic dependence 12. Colonic polyps Allergies sulfa, macrolides, MiraLax, Augmentin, erythroid mycin Past surgical history 1. ALLISON with USO 1990 2. Cholecystectomy in 1995 3. Appendectomy 1963 4. Tonsillectomy in 1941 5. Pacemaker in 2012 6. 2010 total right hip replacement 7. Salpingectomy secondary to ectopic Family history Father at age 58 from colon cancer Mother with history of hypertension, diabetes, cervical cancer, hyperlipidemia Social history she is Patient has 3 grown children and lives with her daughter Autumn luna who is the durable power of deputy attorney general and her phone number is [phone] Patient is a retired manager medical Patient History Medical History Diverticulosis (Acute) Family & Social History Social History: household members family Prior Living Arrangements House Safety & Behavioral: Feels Safe in Current Yes Environment Suicidal Ideation Description None Suicide Plan Description No Plan Tobacco & Substance use: Smoking Status Former smoker Substance Use Type does not use Meds Home Medications and Allergies Home Medications Medication Instructions Recorded Confirmed Type estradiol 1 mg PO QDAY #0 12/24/10 02/29/20 History meloxicam 15 mg PO DAILY #0 12/24/10 02/29/20 History diphenhydramine HCl [Benadryl 50 mg PO Q6HP PRN #0 05/11/16 02/29/20 History Allergy] paroxetine HCl 30 mg PO QDAY #0 05/11/16 02/29/20 History amlodipine [Norvasc] 5 mg PO BID #0 06/13/17 02/29/20 History cholecalciferol (vitamin D3) 5,000 unit PO 3XW #0 06/13/17 02/29/20 History diazepam 5 mg PO PRN PRN #0 06/13/17 02/29/20 History methotrexate sodium (PF) 50 mg IV QWEEK #0 06/13/17 02/29/20 History omeprazole 20 mg PO BID #0 06/13/17 02/29/20 History diphenoxylate-atropine 1 tab PO QID PRN 02/29/20 02/29/20 History lactulose 10 g PO BID 02/29/20 02/29/20 History prednisone 2.5 mg PO DAILY PRN 02/29/20 02/29/20 History sucralfate 10 ml PO Q6H 02/29/20 02/29/20 History venlafaxine 75 mg PO DAILY 02/29/20 02/29/20 History Allergies Allergy/AdvReac Type Severity Reaction Status Date / Time erythromycin base Allergy Severe swelling Verified 02/28/20 18:14 [ERYTHROMYCIN BASE] amoxicillin [AMOXICILLIN] Allergy Intermediate diarhhea Verified 02/28/20 18:14 balsam shemar [BALSAM SHEMAR] Allergy Intermediate rash Verified 02/28/20 18:14 bronopol [BRONOPOL] Allergy Intermediate rash Verified 02/28/20 18:14 cefdinir [CEFDINIR] Allergy Intermediate stomach Verified 02/28/20 18:14 ache cobalt [COBALT] Allergy Intermediate rash Verified 02/28/20 18:14 propylene glycol Allergy Intermediate rash Verified 02/28/20 18:14 [PROPYLENE GLYCOL] Sulfa (Sulfonamide Allergy Intermediate nausea Verified 02/28/20 18:14 Antibiotics) [SULFA (SULFONAMIDE ANTIBIOTICS)] morphine [MORPHINE] Allergy Unknown Verified 02/28/20 18:14 Review of Systems Review of Systems Narrative: Review of systems is negative other than HPI Patient denies chest pain or shortness of breath Patient denies falls Reviewed this with her daughter Low-grade temperature prior to admission at 99 and patient with normal temperature is typically in the range of 96 No GI symptoms Decreased oral intake over the last 6 days for unclear reasons History of waxing and waning confusion and decreased mental status that has been more chronic but worsened over the week prior to admission Exam Vital Signs (past 8 hours): - 02/29/20 08:00 Temperature 97.2 F L Pulse Rate 61 Respiratory Rate 17 Blood Pressure 141/59 H Pulse Oximetry 98 Oxygen Delivery Method Room Air Oxygen Flow Rate 0 Narrative Exam Narrative: Patient is alert and oriented person place and time. Patient is lying in the hospital bed eating her lunch in no apparent distress. Patient appears younger than stated age HEENT: Unremarkable no mucosal abnormalities Neck: Supple without adenopathy or thyromegaly no jugular venous distention or bruits Chest: Clear to auscultation without wheezes rhonchi or crackles Cor: Regular rate and rhythm without a murmur Abdomen: Positive bowel sounds, soft, nontender, nondistended Extremities: No edema, pulses intact, D IP and PIP bony arthropathy with joint deformity in the toes and the fingers DTRs are trace bilateral patellar. Neurologic is exam is nonfocal Skin no rash Objective Labs Result Diagrams: 02/29/20 05:46 02/29/20 05:46 Labs: Laboratory Results - last 24 hr 02/28/20 02/28/20 02/28/20 18:20 18:23 18:23 WBC 9.8 RBC 4.20 Hgb 11.0 L Hct 33.4 L MCV 79.4 L MCH 26.1 MCHC 32.9 RDW 17.0 H Plt Count 254 Neut % (Auto) 83.2 H Lymph % (Auto) 10.4 L [place] % (Auto) 5.4 Eos % (Auto) 0.4 L Baso % (Auto) 0.6 Neut # (Auto) 8100 H Lymph # (Auto) 1000 L [place] # (Auto) 500 Eos # (Auto) 0 Baso # (Auto) 100 PT 11.0 INR 1.0 APTT 27 Sodium Potassium Chloride Carbon Dioxide BUN Creatinine Estimated GFR BUN/Creatinine Ratio Glucose Lactate 1.0 Calcium Total Bilirubin AST ALT Alkaline Phosphatase Total Creatine Kinase CK-MB (CK-2) CK-MB (CK-2) Rel Index Troponin I Total Protein Albumin Globulin Albumin/Globulin Ratio Procalcitonin Prolactin Urine Color Urine Appearance Urine pH Ur Specific [place] Urine Protein Urine Glucose (UA) Urine Ketones Urine Occult Blood Urine Nitrate Urine Bilirubin Urine Urobilinogen Ur Leukocyte Esterase Urine RBC Urine WBC Ur Squamous Epith Cells Urine Bacteria Ur Culture Indicated? U Opiates 300ng/mL cut Ur Oxycodone Screen Urine Methadone Screen Ur Barbiturates Screen U Tricyclic Antidepress Ur Phencyclidine Scrn Ur Amphetamines Screen U Methamphetamines Scrn Ur MDMA Scrn (Ecstasy) U Benzodiazepines Scrn Urine Cocaine Screen U Marijuana (THC) Screen COVID-19 PCR 02/28/20 02/28/20 02/28/20 18:23 18:23 18:23 WBC RBC Hgb Hct MCV MCH MCHC RDW Plt Count Neut % (Auto) Lymph % (Auto) [place] % (Auto) Eos % (Auto) Baso % (Auto) Neut # (Auto) Lymph # (Auto) [place] # (Auto) Eos # (Auto) Baso # (Auto) PT INR APTT Sodium 131 L Potassium 5.3 H Chloride 109 H Carbon Dioxide 26 BUN 29 H Creatinine 1.70 H Estimated GFR 28.7 L BUN/Creatinine Ratio 17.1 Glucose 120 H Lactate Calcium 10.7 H Total Bilirubin 0.2 AST 24 ALT 14 Alkaline Phosphatase 42 Total Creatine Kinase 26 L CK-MB (CK-2) TNP CK-MB (CK-2) Rel Index TNP Troponin I < 0.012 Total Protein 7.0 Albumin 4.2 Globulin 2.8 Albumin/Globulin Ratio 1.5 Procalcitonin < 0.05 Cancelled Prolactin 31.6 H Urine Color Urine Appearance Urine pH Ur Specific [place] Urine Protein Urine Glucose (UA) Urine Ketones Urine Occult Blood Urine Nitrate Urine Bilirubin Urine Urobilinogen Ur Leukocyte Esterase Urine RBC Urine WBC Ur Squamous Epith Cells Urine Bacteria Ur Culture Indicated? U Opiates 300ng/mL cut Ur Oxycodone Screen Urine Methadone Screen Ur Barbiturates Screen U Tricyclic Antidepress Ur Phencyclidine Scrn Ur Amphetamines Screen U Methamphetamines Scrn Ur MDMA Scrn (Ecstasy) U Benzodiazepines Scrn Urine Cocaine Screen U Marijuana (THC) Screen COVID-19 PCR 02/28/20 02/28/20 02/28/20 19:20 19:36 19:36 WBC RBC Hgb Hct MCV MCH MCHC RDW Plt Count Neut % (Auto) Lymph % (Auto) [place] % (Auto) Eos % (Auto) Baso % (Auto) Neut # (Auto) Lymph # (Auto) [place] # (Auto) Eos # (Auto) Baso # (Auto) PT INR APTT Sodium Potassium Chloride Carbon Dioxide BUN Creatinine Estimated GFR BUN/Creatinine Ratio Glucose Lactate Calcium Total Bilirubin AST ALT Alkaline Phosphatase Total Creatine Kinase CK-MB (CK-2) CK-MB (CK-2) Rel Index Troponin I Total Protein Albumin Globulin Albumin/Globulin Ratio Procalcitonin Prolactin Urine Color Yellow Urine Appearance Clear Urine pH 6.0 Ur Specific [place] 1.010 Urine Protein Negative Urine Glucose (UA) Negative Urine Ketones Negative Urine Occult Blood Negative Urine Nitrate Negative Urine Bilirubin Negative Urine Urobilinogen 0.2 Ur Leukocyte Esterase Negative Urine RBC 0-1/hpf Urine WBC 0-1/hpf Ur Squamous Epith Cells 5-10 /hpf H Urine Bacteria None seen Ur Culture Indicated? Cult not indicated U Opiates 300ng/mL cut Positive H Ur Oxycodone Screen Negative Urine Methadone Screen Negative Ur Barbiturates Screen Negative U Tricyclic Antidepress Negative Ur Phencyclidine Scrn Negative Ur Amphetamines Screen Negative U Methamphetamines Scrn Negative Ur MDMA Scrn (Ecstasy) Negative U Benzodiazepines Scrn Negative Urine Cocaine Screen Negative U Marijuana (THC) Screen Negative COVID-19 PCR Cancelled 02/28/20 02/28/20 02/29/20 20:45 22:25 05:46 WBC 7.9 RBC 3.76 L Hgb 9.9 L Hct 30.1 L MCV 80.0 MCH 26.3 MCHC 32.8 RDW 16.5 H Plt Count 216 Neut % (Auto) 65.7 Lymph % (Auto) 21.8 L [place] % (Auto) 9.6 Eos % (Auto) 2.3 Baso % (Auto) 0.6 Neut # (Auto) 5200 Lymph # (Auto) 1700 [place] # (Auto) 800 Eos # (Auto) 200 Baso # (Auto) 0 PT INR APTT Sodium 132 L Potassium 4.5 Chloride 111 H Carbon Dioxide 26 BUN 27 H Creatinine 1.55 H Estimated GFR 31.9 L BUN/Creatinine Ratio 17.4 Glucose 102 Lactate Calcium 9.6 Total Bilirubin AST ALT Alkaline Phosphatase Total Creatine Kinase CK-MB (CK-2) CK-MB (CK-2) Rel Index Troponin I Total Protein Albumin Globulin Albumin/Globulin Ratio Procalcitonin Prolactin Urine Color Urine Appearance Urine pH Ur Specific [place] Urine Protein Urine Glucose (UA) Urine Ketones Urine Occult Blood Urine Nitrate Urine Bilirubin Urine Urobilinogen Ur Leukocyte Esterase Urine RBC Urine WBC Ur Squamous Epith Cells Urine Bacteria Ur Culture Indicated? U Opiates 300ng/mL cut Ur Oxycodone Screen Urine Methadone Screen Ur Barbiturates Screen U Tricyclic Antidepress Ur Phencyclidine Scrn Ur Amphetamines Screen U Methamphetamines Scrn Ur MDMA Scrn (Ecstasy) U Benzodiazepines Scrn Urine Cocaine Screen U Marijuana (THC) Screen COVID-19 PCR Negative 02/29/20 05:46 WBC RBC Hgb Hct MCV MCH MCHC RDW Plt Count Neut % (Auto) Lymph % (Auto) [place] % (Auto) Eos % (Auto) Baso % (Auto) Neut # (Auto) Lymph # (Auto) [place] # (Auto) Eos # (Auto) Baso # (Auto) PT INR APTT Sodium 139 Potassium 3.8 Chloride 117 H Carbon Dioxide 26 BUN 19 H Creatinine 1.17 H Estimated GFR 44.2 L BUN/Creatinine Ratio 16.2 Glucose 78 L Lactate Calcium 9.5 Total Bilirubin AST ALT Alkaline Phosphatase Total Creatine Kinase CK-MB (CK-2) CK-MB (CK-2) Rel Index Troponin I Total Protein Albumin Globulin Albumin/Globulin Ratio Procalcitonin Prolactin Urine Color Urine Appearance Urine pH Ur Specific [place] Urine Protein Urine Glucose (UA) Urine Ketones Urine Occult Blood Urine Nitrate Urine Bilirubin Urine Urobilinogen Ur Leukocyte Esterase Urine RBC Urine WBC Ur Squamous Epith Cells Urine Bacteria Ur Culture Indicated? U Opiates 300ng/mL cut Ur Oxycodone Screen Urine Methadone Screen Ur Barbiturates Screen U Tricyclic Antidepress Ur Phencyclidine Scrn Ur Amphetamines Screen U Methamphetamines Scrn Ur MDMA Scrn (Ecstasy) U Benzodiazepines Scrn Urine Cocaine Screen U Marijuana (THC) Screen COVID-19 PCR Assessment & Plan Assessment & Plan narrative: 84-year-old female with multiple medical problems including arthritis with possible autoimmune disorder and history of chronic pain. Patient admitted for mental status changes and acute dehydration with acute on chronic kidney disease. Acute dehydration of unclear etiology improved with IV fluids Plan: Will discontinue IV fluids and reassess in a.m. Assessment 2. Acute on chronic kidney disease likely secondary to acute dehydration. Urinalysis was unremarkable and CBC was not suggestive of infection. We will stop IV fluids and re-evaluate in a.m.. Patient chronically on NSAIDs but needed to control her pain and her arthritis. Assessment 3. Hyponatremia improved Plan: Will recheck in a.m. certainly could contribute to waxing and waning of mental status changes Assessment 4. Decreased mental status of unclear etiology suspect multifactorial. No acute neurologic process suspected. No evidence of infection at this time. COVID-19 testing was negative. White count is normal. Patient is afebrile. Patient seems to be have an excellent response to IV hydration and treatment of her dehydration but it is unclear how this developed. Plan: Will stop IV fluids. Will continue to monitor overnight and will re- evaluate tomorrow. Anticipate possible discharge in a.m. if no new problems and condition continues to improve. Will likely go home with home health. Will encourage p.o. fluid intake Assessment 5. Normocytic anemia suspect delusional Plan: Will continue to monitor. Will guaiac stools. Assessment 6. Depression stable Patient on a lot of psychoactive medications. At this point will continue outpatient treatment of venlafaxine and Paxil and mirtazapine and trazodone. Wonder if this is contributing to periods of affected mental status. Possible neuropsych eval as outpatient might be beneficial.. No acute issues Assessment 7. Chronic abdominal pain of unclear etiology no acute issues Plan: Will continue outpatient PPI and sucralfate Assessment 8. Hypertension stable Plan: Continue amlodipine Assessment 9. Chronic pain related to arthritis and possible autoimmune disorder although I think this looks most like degenerative joint disease Plan: Continue outpatient hydrocodone and meloxicam and Relistor for constipati on Code status is DNR Quality VTE Deep Vein Thrombosis/Pulmonary Embolism Present on Admission: No
[2020-02-29] MEDS: PARoxetine 10 MG TABLET 30 MG PO (12:51)
[2020-02-29] MEDS: VENLAFAXINE ER 75 MG CAP PO (12:51)
[2020-02-29] MEDS: predniSONE 10 MG TABLET PO (13:01)
--- NOTE | 2020-02-29 13:19 | PT.IIE ---
Medical History (Last Reviewed 02/28/20 @ 18:48 by Sd Wilkes DO) Diverticulosis (Acute) Physical Therapy Inpatient Evaluation/Re-Eval M1 PT/OT-IP Prior Functional Status Start: 02/29/20 12:06 Freq: NEEDED Status: Active Protocol: Document 02/29/20 12:49 AW (Rec: 02/29/20 13:19 AW [id number]) Medical Review Prior Functional Status Medical History Reviewed Yes Diet/Fluid Consistency Regular Communication WNL Mobility and Gait Pt reports she is independent with household ambulation but leans on mena and furniture as needed for support. She states she has not fallen within recent memory. She uses a SPC outside the home but states she does not leave the house often. Activities of Daily Living and IADL's Pt reports independence with all ADL's. Her daughter, Autumn, assists with meals and other IADL's. Prior Functional Level (Other details) Pt has remote history of CHET and had HH therapy after that but has had no other supportive services in the home. Social History Household Members family Living Arrangements House Number of Floors (Floors) One Floor Number of Stairs To Enter/Railing? 2 DAVID through garage with R rail ascending Home Environment High Toilet,Tub/Shower,Narrow Doors Home Equipment Front Wheel Walker,Grab Bars In Shower Additional Social History Comment Pt lives with her daughter Autumn, Autumn's , and other family. Autumn is her primary caregiver. According to Autumn, the pt's bedroom and bathroom are narrow and would not accommodate a walker, but pt has been safe using mena for support. She does have a FWW at home which she could use to access the great room which she tends to avoid since the mena are not convenient to hold on to. M2 PT-IP Current Condition Start: 02/29/20 12:06 Freq: NEEDED Status: Active Protocol: Document 02/29/20 12:49 AW (Rec: 02/29/20 13:19 AW [id number]) Physical Therapy Current Condition Current Condition Evaluation Date 02/29/20 Treatment Diagnosis confusion, AMS, difficulty in walking Onset Date 02/28/20 M3 PT-IP Subjective Start: 02/29/20 12:06 Freq: NEEDED Status: Active Protocol: Document 05/19/20 12:49 AW (Rec: 02/29/20 13:19 AW [id number]) Subjective Physical Therapy Visit Type Type Initial Evaluation Visit Start Time 12:25 Visit Stop Time 12:44 Total Visit Minutes 19 Number of PROTOZOOLOGY TEACHER Visits 0 Physical Therapy Visit Comments Patient Comments I'm so afraid of falling Patient Goals To return home and increase her confidence in moving around Therapy Pain Assessment Pain When Pain Assessed During Mobility Pain Present Pain Present Denied Pain M4 PT-IP Mobility and Gait Start: 02/29/20 12:06 Freq: NEEDED Status: Active Protocol: Document 02/29/20 12:49 AW (Rec: 02/29/20 13:19 AW [id number]) PT-Bed Mobility Assessment Rolling Level of Assist Standby Assistance Supine to Sit Supine to Sit Standby Assistance Scooting Scooting to Edge of Bed Standby Assistance PT-Transfer Assessment Sit to and From Stand Sit to and from Stand Contact Guard Assistance,1 Person Assistance,Use of Upper Extremities Equipment Transfer Assistive Device Gait Belt,Front Wheeled Walker Orthotic/Prosthetic Devices or Brace: No Transfers Transfer Destination Chair Transfer Technique pt ambulated with FWW Transfer Ability Level of Assist Standby Assistance,1 Person Assistance,Use of Upper Extremities Comments Mobility Comments Pt was sitting up in bed upon PT arrival. She completed bed mobility with bed flat SBA and sat EOB with and without UE support. She stood from the bed without assistive device but exhibited initial unsteadiness requiring CGA. Pt proceeded to ambulate 10 feet without AD, requiring CGA as pt reached to steady herself with furniture and countertops . Pt then used a FWW to ambulate ~150 feet in the halls, requiring SBA. No instability was observed and pt reported feeling steadier and safer with the walker. Pt returned to the room and transferred to the chair SBA and cues to reach back for the chair arms. She was positioned in the chair with call light and lunch tray in front of her, chair alarm on for safety. RN and MD notified of pt's performance. Gait Assessment Gait Gait Assistance Required: Standby Assistance,Contact Guard Assist Distance (Feet) 150 Assistive Devices Assistive Device None,Gait Belt,Front Wheeled Walker Orthotic/Prosthetic Devices or Brace: No Gait Deviations General Gait Pattern Antalgic,Decreased Stride Length,Decreased Feet Clearance,Flexed Trunk Factors Limiting Gait Function Factors Limiting Gait Function Decreased Activity Tolerance, Decreased Strength,Poor Balance,Poor Safety Awareness Comments Gait Comments See mobility comments. Stair Climbing Assessment Comments Stair Climbing Comments Not assessed. PT-Balance Assessment Sitting Balance and Reactions Static Sitting Balance Ability Good Dynamic Sitting Balance Ability Good Standing Balance and Reactions Static Standing Balance Ability Fair Dynamic Standing Balance Ability Fair Device Used FWW M5 PT-IP Objective Assessments Start: 02/29/20 12:06 Freq: NEEDED Status: Active Protocol: Document 02/29/20 12:49 AW (Rec: 02/29/20 13:19 AW [id number]) Orientation Orientation/Cognition Level of Alertness Alert Orientation Name,Year,Place,Situation Language Function Ability No Deficits Noted Safety Awareness Decreased Safety Awareness Comments Pt somewhat impulsive with the FWW, needing cues to maintain contact with the FWW until ready to sit. Gross Range of Motion Lower Extremity ROM Assessment Within Functional Limits Strength Lower Extremity Strength Assessment Bilaterally Impaired Hip 3+/5 Knee 4-/5 Ankle 4/5 Coordination Assessment Gross Coordination Gross Coordination WNL Sensation Assessment Sensation Gross Sensation WNL Muscle Tone Muscle Tone WNL Yes M6 PT-IP Treatment Start: 02/29/20 12:06 Freq: NEEDED Status: Active Protocol: Document 02/29/20 12:49 AW (Rec: 02/29/20 13:19 AW [id number]) Physical Therapy Treatment Education Education Provided Safety Other Treatments Other Treatment Performed Provided education on role of PT, plan of care, and rationale for selection of appropriate assistive device. M7 PT-IP Assessment and Plan Start: 02/29/20 12:06 Freq: NEEDED Status: Active Protocol: Document 02/29/20 12:49 AW (Rec: 02/29/20 13:19 AW [id number]) PT Summary Assessment and Plan Potential Rehabilitation Potential Excellent Status of Condition at Evaluation Stable Summary Impairments Strength,Balance,Bed Mobility, Transfers,Gait,Activity Tolerance Assessment Summary Emely is an 84 yo woman admitted with diagnosis of altered mental staus and acute kidney injury. At baseline, she lives with her daughter and extended family. Daughter Autumn provides the majority of assist. She walks independently at home but steadies herself with mena/ furniture. She uses a SPC when out of the house but she is largely homebound. She remains independent with ADL's. On evaluation, she required SBA for ambulation with FWW and CGA for ambulation without AD. She is notably unsteady without the walker but agrees with this PT's assessment that she would be safer at home with the FWW when outside of her room. Pt's BP was steady in the 120's/60's before and after activity. Due to decreased BLE strength and balance impairments, she would benefit from home health therapy at discharge; her family is amenable to this plan. Goals Bed Mobility Goal Independent Transfer Goal Independent,Front Wheeled Walker Gait Goal Independent,Front Wheel Walker Gait Distance 200 Other Goals - up/down 2 steps with R rail ascending SBA Days to Meet Goals 5 Frequency of Treatment Frequency Of Treatment Once a Day Treatment Plan Physical Therapy Treatment Plan Bed Mobility Training,Transfer Training,Gait Training, Therapeutic Exercise,Balance Retraining,Discharge Planning, Hot or Cold Pack Other Recommendations and Next Treatment gait training with FWW, assess Focus safety on stairs Recommendations To Nursing Amount of Assist Needed 1 Person Assist Discharge Recommendations PT Discharge Recommendations Home with Assistance,Home Health Transportation Needs at Discharge Private Vehicle
--- NOTE | 2020-02-29 14:41 | OT.IP.EVAL ---
Past Medical History (Last Reviewed 02/28/20 @ 18:48 by Sd Wilkes DO) Diverticulosis (Acute) Occupational Therapy Inpatient Evaluation/Re-Eval M1 PT/OT-IP Prior Functional Status Start: 02/29/20 15:29 Freq: NEEDED Status: Active Protocol: Document 02/29/20 15:29 [facility] (Rec: 02/29/20 15:50 [facility] [id number]) Medical Review Prior Functional Status Medical History Reviewed Yes Diet/Fluid Consistency Regular Communication WNL Mobility and Gait Pt reports she is independent with household ambulation but leans on mena and furniture as needed for support. She states she has not fallen within recent memory. She uses a walking stick outside the home but states she does not leave the house often. Activities of Daily Living and IADL's Pt reports independence with all ADL's. Her daughter, Autumn, assists with meals and other IADL's-bills,medications. Prior Functional Level (Other details) Pt has remote history of CHET and had HH therapy after that but has had no other supportive services in the home. Social History Household Members family Living Arrangements House Number of Floors (Floors) One Floor Number of Stairs To Enter/Railing? 2 DAVID through garage with R rail ascending Home Environment High Toilet,Tub/Shower,Narrow Doors Home Equipment Front Wheel Walker,Grab Bars In Shower Additional Social History Comment Pt lives with her daughter Autumn, Autumn's , and other family. Autumn is her primary caregiver. According to Autumn, the pt's bedroom and bathroom are narrow and would not accommodate a walker, but pt has been safe using mena for support. She does have a FWW at home which she could use to access the great room which she tends to avoid since the mena are not convenient to hold on to. M2 OT-IP Current Condition Start: 02/29/20 15:29 Freq: Status: Active Protocol: Document 02/29/20 15:29 [facility] (Rec: 02/29/20 15:50 [facility] [id number]) Occupational Therapy Current Condition Current Condition Evaluation Date 02/29/20 Treatment Diagnosis Dehydration Diagnosis Onset Date 02/28/20 M3 OT- IP Subjective and Pain Start: 02/29/20 15:29 Freq: Status: Active Protocol: Document 02/29/20 15:29 [facility] (Rec: 02/29/20 15:50 [facility] [id number]) OT- Subjective Occupational Therapy Visit Type Type Initial Evaluation Visit Start Time 14:25 Visit Stop Time 14:41 Total Visit Minutes 16 Occupational Therapy Visit Comments Patient Comments Pt agreeable to get up to wash up at the sink. Patient/Caregiver Goals TO go hoome. OT Pain Assessment Pain When Pain Assessed At Rest Pain Present Pain Present Denied Pain M4 OT- IP ADL's Start: 02/29/20 15:29 Freq: Status: Active Protocol: Document 02/29/20 15:29 [facility] (Rec: 02/29/20 15:50 [facility] [id number]) OT [id number] Comments OT Self-Feeding Comments Not at meal time. OT ADL-Grooming Comments OT Grooming Comments Pt able to wash her hands while standing at the sink with SBA-holding to the counter. OT ADL-Dressing General Eval Lower Body Dressing Ability Independent Comments OT Dressing Comments Pt able to independently lacie/ doff her socks while sitting at the edge of the bed and also able to lacie/doff her bedroom slippers. OT ADL-Toileting Comments OT Toileting Comments Pt able to get up and down from the toilet with SBA. OT ADL-Bathing Comments OT Bathing Comments NOt performed as pt too tired. M5 OT- IP IADL's Start: 02/29/20 15:29 Freq: Status: Active Protocol: Document 02/29/20 15:29 [facility] (Rec: 02/29/20 15:50 [facility] [id number]) OT-Instrumental Activities of Daily Living Medication Management Medication Management Caregiver Administers Money Management Money Management Caregiver Provides Assistance Meal Preparation Meal Preparation Caregiver Provides Assist Food Service Specialist Food Service Specialist Caregiver Provides Assist Driving Driving Caregiver Provides Assist M6 OT- IP Functional Cognition Start: 02/29/20 15:29 Freq: Status: Active Protocol: Document 02/29/20 15:29 [facility] (Rec: 02/29/20 15:50 [facility] [id number]) Cognitive Factors Limiting Selfcare Function Cognitive Ability Level of Alertness Alert Patient Orientation Name,Place,Situation Attention Span Ability Capable of Focused Attention, Capable of Sustained Attention Ability to Follow Commands Able to Follow Multi-Step Commands Cognitive Comments Cognitive Assessment Comments Pt able to follow 1-2 step commands, states her wants and needs. To continue to assess , pt feels that she is at base line for cognitive needs. M7 OT- IP Mobility and Balance Start: 02/29/20 15:29 Freq: Status: Active Protocol: Document 02/29/20 15:29 [facility] (Rec: 02/29/20 15:50 [facility] [id number]) OT- Bed Mobility Assessment Supine to Sit Supine to Sit Assist Standby Assistance Sit to Supine Sit to Supine Assist Standby Assistance OT-Transfer Assessment Sit to and From Stand Sit to and from Stand Contact Guard Assistance Transfers Transfer Ability Contact Guard Assistance Technique Transfer Destination Bed,Toilet Transfer Technique Stand Step Pivot Devices Transfer Assistive Devices Gait Belt Comments Mobility Comments CGA to help onto pt at times without a device. When pt able to hold onto counter,mena, SBA for her mobility. Pt feels close to baseline . but just feels a little weaker now . OT- Balance Assessment Sitting Balance and Reactions Static Sitting Balance Ability Normal Dynamic Sitting Balance Ability Normal Standing Balance and Reactions Static Standing Balance Ability Fair Dynamic Standing Balance Ability Poor M8 OT- IP Objective Assessments Start: 02/29/20 15:29 Freq: Status: Active Protocol: Document 02/29/20 15:29 [facility] (Rec: 02/29/20 15:50 [facility] [id number]) OT Gross Range of Motion Upper Extremity Range of Motion Assessment Within Functional Limits OT Strength Upper Extremity Strength Assessment Bilaterally Impaired Comments Strength Comments RUE 4-/5, LUE 3+/5 OT Sensation Assessment Comments Summary Comments Intact for sensation. M9 OT- IP Assessment and Plan Start: 02/29/20 15:29 Freq: Status: Active Protocol: Document 02/29/20 15:29 [facility] (Rec: 02/29/20 15:50 [facility] [id number]) OT Summary Assessment and Plan Potential Rehabilitation Potential Excellent Analytic Complexity at Evaluation Low Summary OT Impairments Dressing,Toileting,Bathing, Toilet Transfers,Shower Transfers,Activity Tolerance Progress Towards Goals Progressing Toward Goals Assessment Summary Pt low complexity and main barrier is decreased activity tolerance. Pt here for dehydration and pt feels better today and that she is close to her baseline. Pt has a supportive family that can assist her if needed at home. Able to call pt's daughter to update how pt did with OT and to recommend a shower chair and that to provide supervision/assist as needed initially until the pt get stronger. Goals Grooming Goal Independent Dressing Goal Independent Toileting Goal Independent Bathing Goal Standby Assistance Toilet Transfer Goal Independent Shower Transfer Goal Standby Assistance Patient/Caregiver Education Goal Caregiver Independent Assisting Patient Days to Meet Goals 4 Frequency of Treatment Frequency Of Treatment Once a Day Treatment Plan OT Treatment Plan ADL Training,Functional Mobility,Patient/Family Education,Discharge Planning Discharge Recommendations OT Discharge Recommendations Home with Assistance,Home Health Home Equipment Needs shower chair Transportation Needs at Discharge Private Vehicle
[2020-02-29 14:48] LABS: Erythrocyte Sedimentation Rate 5 MM/HR (0-20)
[2020-02-29] MEDS: HYDROCODONE/ACET 10/325 TABLET 1 TAB PO ×2 (15:51→20:20)
[2020-02-29 16:00] VITALS: BP 128/66; PULSE 69; RESP 18; TEMP 36.1; O2SAT 99
[2020-02-29] MEDS: MIRTAZAPINE 15 MG TABLET PO (20:19)
[2020-02-29 20:36] VITALS: BP 127/69; PULSE 79; RESP 18; TEMP 36.9
[2020-03-01 00:14] VITALS: BP 137/68; PULSE 64; RESP 16; TEMP 37.1; O2SAT 96
[2020-03-01 05:45] LABS: Add Manual Diff / Slide Review NO; Basophils Absolute Auto 100 /uL (0-100); Basophils Percent Auto 0.7 % (0-2); Eosinophils Absolute Auto 200 /uL (0-450); Eosinophils Percent Auto 2.4 % (2-4); Hematocrit 32.5 % (36-46); Hemoglobin 10.9 g/dL (12.0-16.0); Lymphocytes Absolute Auto 1700 /uL (1100-4500); Lymphocytes Percent Auto 18.9 % (25-40); Mean Corpuscular HGB Conc 33.4 % (30-36); Mean Corpuscular Hemoglobin 26.7 PG (26-34); Mean Corpuscular Volume 79.7 fL (80-100); Monocytes Absolute Auto 800 /uL (0-900); Monocytes Percent Auto 8.4 % (3-14); Neutrophils Absolute Auto 6200 /uL (1500-7000); Neutrophils Percent Auto 69.6 % (50-75); Platelet Count 245 X10^3/uL (150-400); Red Blood Cell Count 4.07 X10^6/uL (4.0-5.2); Red Cell Distribution Width 17.3 % (11.6-14.8)
[2020-03-01 05:53] VITALS: BP 138/73; PULSE 82; RESP 16; TEMP 36.2; O2SAT 100
[2020-03-01 06:05] LABS: Alanine Aminotransferase 11 IU/L (<35); Albumin 3.6 g/dL (3.5-5.0); Albumin Globulin Ratio 1.4 (1.0-2.8); Alkaline Phosphatase 37 U/L (38-126); Aspartate Aminotransferase 21 IU/L (14-36); BUN Creatinine Ratio 16.8 (6-22); Bilirubin Total 0.3 mg/dL (0.2-1.3); Blood Urea Nitrogen 17 mg/dL (7-17); Calcium 10.5 mg/dL (8.4-10.2); Carbon Dioxide 26 mmol/L (22-32); Chloride 115 mmol/L (98-107); Estimated Glomerular Filt Rate 52.3 mL/min (>60); Globulin 2.6 g/dL (1.7-4.1); Glucose 82 mg/dL (80-110); HEMOLYSIS < 15 (0-50); Potassium 4.2 mmol/L (3.4-5.1); Sodium 137 mmol/L (137-145); Total Protein 6.2 g/dL (6.3-8.2)
[2020-03-01 06:16] LABS: C-Reactive Protein Quant < 0.5 mg/dL (<1.0)
[2020-03-01] MEDS: PANTOPRAZOLE 20 MG TABLET PO (06:21)
[2020-03-01] MEDS: SUCRALFATE 1 GM TABLET PO ×2 (06:58→12:02)
[2020-03-01 07:56] VITALS: BP 157/97; PULSE 77; RESP 14; TEMP 36.3; O2SAT 98
[2020-03-01] MEDS: HYDROCODONE/ACET 10/325 TABLET 1 TAB PO ×2 (08:11→12:00)
[2020-03-01] MEDS: estradioL 1 MG TABLET PO (08:13)
[2020-03-01] MEDS: AMLODIPINE 5 MG TABLET PO (08:13)
[2020-03-01] MEDS: predniSONE 10 MG TABLET PO (08:14)
[2020-03-01] MEDS: PARoxetine 10 MG TABLET 30 MG PO (08:14)
--- NOTE | 2020-03-01 09:21 | P.DS_ITS ---
History of Present Illness History of Present Illness Date Patient Seen: 03/01/20 Time Patient Seen: 09:21 Chief complaint: Confusion Narrative: This pleasant 84-year-old female who appears younger than her stated age presents to emergency department via emergency medical system due to weakness and inability to walk. Patient has a history of multiple medical prob lems including depression and chronic pain issues and chronically on hydrocodone. She lives with her daughter here in [place] and has had a 6 day worsening of cognition as well as progressive weakness to the point on day of admission she was unable to ambulate. She was noted at home to have O2 sats in the low 90s and a temperature a 99.4? with a usual normal temperature of 96?. She was evaluated in the emergency department and found to have acute dehydration and acute on chronic kidney disease. She was admitted for IV fluid rehydration and further evaluation. COVID-19 testing was negative. Patient is alert and good historian today. She is feeling better. She is still feeling weak. She has chronic pain issues in her abdomen and her joints but no chest pain or shortness of breath. She denies headaches. She has been afebrile overnight and O2 sats have been normal on room air Discharge Providers Provider Date of admission: 02/28/20 22:05 Discharge Date: 03/01/20 Primary care physician: Lucina Barnett MD Consults: 02/29/20 11:[address] [facility] - Chief Mate Routine Comment: placement Consult to Occupational Therapy Evaluate & Treat Comment: Physician Instructions: Evaluate and treat Consult to Physical Therapy Evaluate & Treat Comment: Physician Instructions: Evaluate and Treat Discharge provider: Lucina Barnett MD Summary Hospital Course Discharge Diagnosis: 1. Acute dehydration likely secondary to recent diarrhea 2. Acute on chronic kidney disease likely secondary to acute dehydration. 3. Hyponatremia, resolved 4. Decreased mental status, likely secondary to dehydration 5. Normocytic anemia suspect dilutional 6. Depression, stable 7. Hyperparathyroidism 8. Hypertension, stable 9. Chronic pain related to arthritis 10. Constipation secondary to hyperparathyroidism 11. Osteoporosis Hospital Course: Hospital course was unremarkable. Patient was rehydrated and BUN and creatinine normalized. On day of discharge, she reports ?I really think it was my diarrhea a few days ago that started everything. Patient admits to not drinking much water. Secondary to newly diagnosed hyperparathyroidism, patient struggles with constipation and is on a bowel protocol. I think I just took too much of my constipation meds. Advised to drink 2-3 L of water daily and to titrate her bowel protocol to achieve a soft bowel movement every day. If diarrhea occurs, advised to reduce/skip her bowel protocol meds as needed. Patient is awaiting parathyroidectomy for definitive treatment. On day of , she is afebrile with stable vital signs throughout. She will be discharged on home health PT/OT and be followed closely in 1 week in the outpatient setting. Time spent on Discharge and Coordination of post-hospital care: 35 minutes Exam Vital Signs (past 8 hours): - 03/01/20 05:53 03/01/20 07:56 Temperature 97.1 F L 97.4 F L Pulse Rate 82 77 Respiratory Rate 16 14 Blood Pressure 138/73 157/97 H Pulse Oximetry 100 98 Oxygen Delivery Method Room Air Oxygen Flow Rate 0 Narrative Exam Narrative: GENERAL: Alert and oriented, appearing stated age and in no acute distress. LUNGS: Clear to ausculation bilaterally, no wheezes, rhonchi or rales. CV: Normal S1 and S2 with regular rate and rhythm, no audible murmurs, rubs or gallops. GI: Soft, nontender, nondistended. Positive bowel sounds. EXTREMITIES: No clubbing, cyanosis, or edema. NEURO: Cranial nerves II through XII grossly intact, no focal deficits. PSYCH: Alert and oriented x 3. SKIN: No concerning lesions. Objective Labs Result Diagrams: 03/01/20 05:00 03/01/20 05:00 Labs: Laboratory Results - last 24 hr 02/29/20 03/01/20 03/01/20 05:08 05:00 05:00 WBC 9.0 RBC 4.07 Hgb 10.9 L Hct 32.5 L MCV 79.7 L MCH 26.7 MCHC 33.4 RDW 17.3 H Plt Count 245 Neut % (Auto) 69.6 Lymph % (Auto) 18.9 L [place] % (Auto) 8.4 Eos % (Auto) 2.4 Baso % (Auto) 0.7 Neut # (Auto) 6200 Lymph # (Auto) 1700 [place] # (Auto) 800 Eos # (Auto) 200 Baso # (Auto) 100 ESR 5 Sodium 137 Potassium 4.2 Chloride 115 H Carbon Dioxide 26 BUN 17 Creatinine 1.01 Estimated GFR 52.3 L BUN/Creatinine Ratio 16.8 Glucose 82 Calcium 10.5 H Total Bilirubin 0.3 AST 21 ALT 11 Alkaline Phosphatase 37 L C-Reactive Protein < 0.5 Total Protein 6.2 L Albumin 3.6 Globulin 2.6 Albumin/Globulin Ratio 1.4 Discharge Plan Discharge Plan Patient Disposition: Home Discharge orders & Medications Prescriptions: Continued meloxicam 15 mg Tablet 15 mg PO DAILY Qty: 0 RF: 0 estradiol 1 mg Tablet 1 mg PO QDAY Qty: 0 RF: 0 diphenhydramine HCl [Benadryl Allergy] 25 MG tablet 50 mg PO Q6HP PRN (Reason: Sleep) Qty: 0 RF: 0 paroxetine HCl 30 MG tablet 30 mg PO QDAY Qty: 0 RF: 0 amlodipine [Norvasc] 5 MG tablet 5 mg PO BID Qty: 0 RF: 0 methotrexate sodium (PF) 25 MG/1 ML solution 50 mg IV QWEEK Qty: 0 RF: 0 cholecalciferol (vitamin D3) 5,000 UNIT capsule 5,000 unit PO 3XW Qty: 0 RF: 0 diazepam 5 MG tablet 5 mg PO PRN PRN (Reason: PAIN) Qty: 0 RF: 0 omeprazole 20 MG tablet,delayed release (DR/EC) 20 mg PO BID Qty: 0 RF: 0 sucralfate 100 mg/mL Suspension 10 ml PO Q6H RF: 0 lactulose 10 gram/15 mL solution 10 g PO BID RF: 0 prednisone 5 mg tablet 2.5 mg PO DAILY PRN (Reason: PAIN) RF: 0 diphenoxylate-atropine 2.5-0.025 mg tablet 1 tab PO QID PRN (Reason: Diarrhea) RF: 0 venlafaxine 75 mg capsule,extended release 24hr 75 mg PO DAILY RF: 0 Follow up/Referrals: Lucina Barnett MD [Primary Care Provider] - Diet/Activity/Treatments Diet: Diet as Tolerated Activity: Home Health PT/OT to advance as tolerated. Skin/Wound/Dressing Care Report to your healthcare provider any signs of infection, such as:: chills, fever, night sweats and increased pain Discharge Data Primary Care Provider: Lucina Barnett Attending Provider: Lucina Barnett Admit Date/Time: 02/28/20 22:05 Discharges patient from system. Discharge Date/Time: 03/01/20 15:35 Quality VTE Deep Vein Thrombosis/Pulmonary Embolism Present on Admission: No
--- NOTE | 2020-03-01 10:03 | CM.DPC ---
DCP Discharge Home HH Per , pt is medically stable to d/c home today with HH PT/OT/RN. F2F previously signed by . [facility] was given referral and BARBARA Fernandez kindly offers to fax d/c summary when available along with F2F and MD orders to [facility] today. SW called [facility] and alerted them to pt discharge home today and they confirm that they have accepted pt and will work with her in the next 48 hours max. Plan: Patient to d/c home today with Dtr assist and new [facility] to follow. CYNTHIA Baez
--- NOTE | 2020-03-01 10:29 | PT.IPTN ---
Physical Therapy Treatment Note M2 PT-IP Current Condition Start: 02/29/20 12:06 Freq: NEEDED Status: Active Protocol: Document 02/29/20 12:49 [facility] (Rec: 02/29/20 13:19 AW [id number]) Physical Therapy Current Condition Current Condition Evaluation Date 02/29/20 Treatment Diagnosis confusion, AMS, difficulty in walking Onset Date 02/28/20 M3 PT-IP Subjective Start: 02/29/20 12:06 Freq: NEEDED Status: Active Protocol: Document 03/01/20 10:02 [facility] (Rec: 03/01/20 12:20 [facility] [email or web address]) Subjective Physical Therapy Visit Type Type Treatment Note Visit Start Time 10:02 Visit Stop Time 10:29 Total Visit Minutes 27 Number of CUSTOMER ORDERS CLERK Visits 1 Physical Therapy Visit Comments Patient Comments Pt agreeable to work with therapy. M4 PT-IP Mobility and Gait Start: 02/29/20 12:06 Freq: NEEDED Status: Active Protocol: Document 03/01/20 10:02 [facility] (Rec: 03/01/20 12:20 [facility] [id number]) PT-Bed Mobility Assessment Sit to Supine Sit to Supine Standby Assistance Scooting Scooting to Edge of Bed Standby Assistance PT-Transfer Assessment Sit to and From Stand Sit to and from Stand Standby Assistance,Contact Guard Assistance,1 Person Assistance,Use of Upper Extremities Equipment Transfer Assistive Device Gait Belt,Front Wheeled Walker Orthotic/Prosthetic Devices or Brace: No Transfers Transfer Destination Bed Transfer Technique pt ambulated with FWW Transfer Ability Level of Assist Standby Assistance,1 Person Assistance,Use of Upper Extremities Comments Mobility Comments Pt was in chair upon arrival from therapy and agreed to ambulation and stair training. Pt SBA for scooting to edge of chair and SBA to CGA for sit<>stand w/ FWW. Pt then ambulated ~275 ft from room to stairs w/ SBA to CGA. Pt ambulates slowly and safely w/ min cues for FWW management and upright posture. Pt ascended/descended 3 steps w/ R rail ascending L rail descending w/ CGA and step to step. Pt then ambulated additonal ~100 ft w/ FWW and CGA and was then transported remainder of distance back to room in w/c. Once at room, she sit<>stand from w/c SBA and ambulated w/o A/D and CGA to bed. CGA for stand<>sit, SBA for sit<>supine and SBA for repositioning in bed. Pt reported feelings of fatigue after ambulation and stair training. Pt left in bed w/ all needs in reach. Gait Assessment Gait Gait Assistance Required: Standby Assistance,Contact Guard Assist Distance (Feet) 380 Able to Maintain Weight Bearing Status Yes During Gait Assistive Devices Assistive Device Gait Belt,Front Wheeled Walker Orthotic/Prosthetic Devices or Brace: No Gait Deviations General Gait Pattern Antalgic,Decreased Stride Length,Decreased Feet Clearance,Flexed Trunk Factors Limiting Gait Function Factors Limiting Gait Function Decreased Activity Tolerance, Decreased Strength,Poor Balance,Poor Safety Awareness Comments Gait Comments Pt ambulated total ~380 ft w/ SBA to CGA and FWW for 375 ft of ambulation. ~275 ft to stairs, ~100 ft back in direction of room, remainder of distance in w/c and then ~5 ft from room door to bed. Min cues for FWW manangement and upright posture. Stair Climbing Assessment Evaluation Level of Assist On Stairs Contact Guard Assistance,1 Person Assistance Devices Stair Climbing Assistive Devices Right Railing Technique/Endurance Stair Climbing Direction Ascend and Descend Stair Climbing Technique Step to Step Number of Steps Climbed 3 Stair Climbing Set # Repetitions (reps) 1 Comments Stair Climbing Comments Pt ascended/descended 3 steps w/ CGA and R rail ascending/L rail descending w/ step to step technique. PT-Balance Assessment Sitting Balance and Reactions Static Sitting Balance Ability Good Dynamic Sitting Balance Ability Good Standing Balance and Reactions Static Standing Balance Ability Fair Dynamic Standing Balance Ability Fair Device Used FWW M5 PT-IP Objective Assessments Start: 02/29/20 12:06 Freq: NEEDED Status: Active Protocol: Document 02/29/20 12:49 [facility] (Rec: 02/29/20 13:19 AW [id number]) Orientation Orientation/Cognition Level of Alertness Alert Orientation Name,Year,Place,Situation Language Function Ability No Deficits Noted Safety Awareness Decreased Safety Awareness Comments Pt somewhat impulsive with the FWW, needing cues to maintain contact with the FWW until ready to sit. Gross Range of Motion Lower Extremity ROM Assessment Within Functional Limits Strength Lower Extremity Strength Assessment Bilaterally Impaired Hip 3+/5 Knee 4-/5 Ankle 4/5 Coordination Assessment Gross Coordination Gross Coordination WNL Sensation Assessment Sensation Gross Sensation WNL Muscle Tone Muscle Tone WNL Yes M6 PT-IP Treatment Start: 02/29/20 12:06 Freq: NEEDED Status: Active Protocol: Document 03/01/20 10:02 [facility] (Rec: 03/01/20 12:20 [facility] [id number]) Physical Therapy Treatment Education Education Provided Safety Other Treatments Other Treatment Performed Stair training, use of A/D M7 PT-IP Assessment and Plan Start: 02/29/20 12:06 Freq: NEEDED Status: Active Protocol: Document 03/01/20 10:02 [facility] (Rec: 03/01/20 12:20 [facility] [id number]) PT Summary Assessment and Plan Potential Rehabilitation Potential Excellent Status of Condition at Evaluation Stable Summary Impairments Strength,Balance,Bed Mobility, Transfers,Gait,Activity Tolerance Progress Towards Goals Progressing Toward Goals Assessment Summary Emely showed improvement w/ ambulation today, walking ~380 ft total w/ FWW and SBA to CGA. She also completed 3 steps ascending/descending step to step CGA and was SBA to CGA for bed mobility and transfers. She will benefit from HHPT to help her improve her strength and tolerance for activity. Goals Bed Mobility Goal Independent Transfer Goal Independent,Front Wheeled Walker Gait Goal Independent,Front Wheel Walker Gait Distance 200 Other Goals - up/down 2 steps with R rail ascending SBA Days to Meet Goals 5 Frequency of Treatment Frequency Of Treatment Once a Day Treatment Plan Physical Therapy Treatment Plan Bed Mobility Training,Transfer Training,Gait Training, Therapeutic Exercise,Balance Retraining,Discharge Planning, Hot or Cold Pack Other Recommendations and Next Treatment gait training with FWW, assess Focus safety on stairs Recommendations To Nursing Amount of Assist Needed 1 Person Assist Discharge Recommendations PT Discharge Recommendations Home with Assistance,Home Health Transportation Needs at Discharge Private Vehicle
--- NOTE | 2020-03-01 11:41 | OT.IP.TRT ---
Occupational Therapy Treatment Note M2 OT-IP Current Condition Start: 02/29/20 15:29 Freq: Status: Active Protocol: Document 02/29/20 15:29 [facility] (Rec: 02/29/20 15:50 [facility] [id number]) Occupational Therapy Current Condition Current Condition Evaluation Date 02/29/20 Treatment Diagnosis Dehydration Diagnosis Onset Date 02/28/20 M3 OT- IP Subjective and Pain Start: 02/29/20 15:29 Freq: Status: Active Protocol: Document 03/01/20 11:58 [facility] (Rec: 03/01/20 11:58 [facility] [id number]) OT- Subjective Occupational Therapy Visit Type Type Treatment Note Visit Start Time 11:30 Visit Stop Time 11:41 Total Visit Minutes 11 Occupational Therapy Visit Comments Patient Comments Pt agreed to get dressed as already showered earlier. Patient/Caregiver Goals To get stronger. OT Pain Assessment Pain When Pain Assessed At Rest Pain Present Pain Present Denied Pain M4 OT- IP ADL's Start: 02/29/20 15:29 Freq: Status: Active Protocol: Document 03/01/20 11:51 [facility] (Rec: 03/01/20 11:57 [facility] [id number]) OT ADL-Dressing General Eval Upper Body Dressing Ability Standby Assistance Lower Body Dressing Ability Standby Assistance Comments OT Dressing Comments CLose SBA while standing to lacie clothing up over her hips . OT ADL-Toileting Comments OT Toileting Comments Pt not having to go. OT ADL-Bathing Comments OT Bathing Comments Pt already showered earlier. M5 OT- IP IADL's Start: 02/29/20 15:29 Freq: Status: Active Protocol: Document 02/29/20 15:29 [facility] (Rec: 02/29/20 15:50 [facility] [id number]) OT-Instrumental Activities of Daily Living Medication Management Medication Management Caregiver Administers Money Management Money Management Caregiver Provides Assistance Meal Preparation Meal Preparation Caregiver Provides Assist Ambulatory Technologist Ambulatory Technologist Caregiver Provides Assist Driving Driving Caregiver Provides Assist M6 OT- IP Functional Cognition Start: 02/29/20 15:29 Freq: Status: Active Protocol: Document 03/01/20 11:51 [facility] (Rec: 03/01/20 11:57 [facility] [id number]) Cognitive Factors Limiting Selfcare Function Cognitive Ability Level of Alertness Alert Patient Orientation Name,Age,Birthday,Month,Date, Year,Day of Week,Place, Situation Attention Span Ability Capable of Focused Attention, Capable of Sustained Attention Ability to Follow Commands Able to Follow One Step Commands Memory Description Short Term Impaired Problem Solving Ability Unable to Identify Errors Cognitive Comments Cognitive Assessment Comments Pt a little forgetful and needing cues to remember that she was going to get dressed. Spoke to pt regarding safety awareness and that in would be important to allow her daughter to assist and provide supervision at home. Pt tends to be a little impulsive . M7 OT- IP Mobility and Balance Start: 02/29/20 15:29 Freq: Status: Active Protocol: Document 03/01/20 11:51 [facility] (Rec: 03/01/20 11:57 [facility] [id number]) OT- Bed Mobility Assessment Supine to Sit Supine to Sit Assist Independent OT-Transfer Assessment Sit to and From Stand Sit to and from Stand Standby Assistance Transfers Transfer Ability Standby Assistance Technique Transfer Destination Bed,Chair Devices Transfer Assistive Devices Gait Belt Comments Mobility Comments Independent with bed mobility and close SBA while pt walking around the bed with occasional hand on the bed for steadying. OT- Balance Assessment Sitting Balance and Reactions Static Sitting Balance Ability Normal Dynamic Sitting Balance Ability Normal Standing Balance and Reactions Static Standing Balance Ability Fair Dynamic Standing Balance Ability Poor M8 OT- IP Objective Assessments Start: 02/29/20 15:29 Freq: Status: Active Protocol: Document 02/29/20 15:29 [facility] (Rec: 02/29/20 15:50 [facility] [id number]) OT Gross Range of Motion Upper Extremity Range of Motion Assessment Within Functional Limits OT Strength Upper Extremity Strength Assessment Bilaterally Impaired Comments Strength Comments RUE 4-/5, LUE 3+/5 OT Sensation Assessment Comments Summary Comments Intact for sensation. M9 OT- IP Assessment and Plan Start: 02/29/20 15:29 Freq: Status: Active Protocol: Document 03/01/20 11:51 [facility] (Rec: 03/01/20 11:57 [facility] [id number]) OT Summary Assessment and Plan Potential Rehabilitation Potential Excellent Analytic Complexity at Evaluation Low Summary OT Impairments Dressing,Toileting,Bathing, Toilet Transfers,Shower Transfers,Activity Tolerance Progress Towards Goals Progressing Toward Goals Assessment Summary Pt doing well and moving better today however at times still unsteady of her feet and will benefit from assist at home and home health. Goals Grooming Goal Independent Dressing Goal Independent Toileting Goal Independent Bathing Goal Standby Assistance Toilet Transfer Goal Independent Shower Transfer Goal Standby Assistance Patient/Caregiver Education Goal Caregiver Independent Assisting Patient Days to Meet Goals 3 Frequency of Treatment Frequency Of Treatment Once a Day Treatment Plan OT Treatment Plan ADL Training,Functional Mobility,Patient/Family Education,Discharge Planning Discharge Recommendations OT Discharge Recommendations Home with Assistance,Home Health Home Equipment Needs shower chair
[2020-03-01 11:59] VITALS: BP 142/76; PULSE 70; RESP 14; TEMP 36.3; O2SAT 98
--- NOTE | 2020-03-01 13:39 | CM.DPC ---
DCP cont: Faxed F2F and home health order to [facility] at fax # [phone] with note that discharge summary would be sent once completed by . Fax confirmation scanned in. Rebecca Asher, Care Medical Lab Director
--- NOTE | 2020-03-01 15:19 | PC.NURSE ---
Pt is progressing well, strength returning. I think I am almost to my normal, maybe 90% better HH being set up to see Pt tomorrow at home. D/c planning continues. IV SL. Orders obtained for d/c, teaching provided with Pt and HH starting tomorrow. F/U with Dr Barnett, per Pt this is 1 week out, when called to schedule Dr Cannon office let us know, shes out in a week. Pt will call back for telehealth appt scheduling.
--- NOTE | 2020-03-02 09:58 | CM.DPC ---
DCP cont: Faxed discharge summary to [facility] at fax # [phone]. Fax confirmation scanned in. Rebecca Asher, Care Dinkey Mechanic
== END 2020-03-01 15:35 | disposition home or self-care (01) ==
LOC: ED 21:50 → AC 22:05
PROVIDERS: Family Medicine; Admitting Provider Student in an Organized Health Care Education/Training Program; Emergency Provider Emergency Medicine; PCP Student in an Organized Health Care Education/Training Program; Visit Provider Student in an Organized Health Care Education/Training Program
DX: R41.0 Disorientation, unspecified (principal); I10 Essential (primary) hypertension; E86.0 Dehydration; N18.9 Chronic kidney disease, unspecified; D64.9 Anemia, unspecified; E03.9 Hypothyroidism, unspecified; G89.29 Other chronic pain; K59.09 Other constipation; M81.0 Age-related osteoporosis without current pathological fracture; F32.9 Major depressive disorder, single episode, unspecified; E21.3 Hyperparathyroidism, unspecified; Z11.59 Encounter for screening for other viral diseases
CPT/HCPCS: 36415; 71045; 80048; 80053; 80305; 81001; 82550; 83605; 84145; 84146; 84484; 85025; 85610; 85651; 85730; 86140; 87040; 87635; 93005; 96360; 96361; 97116; 97161; 97165; 97530; 97535; 99284; G0378

== ENCOUNTER → 2020-04-04 14:58 | Outpatient (CLI) | payer OTHER, MEDICAID, SELFPAY ==
[2020-02-28 22:21] VITALS: BMI 23.3
--- NOTE | 2020-04-04 | DI.CT.S_ITS ---
PROCEDURE: CT SOFT TISSUE NECK W CON COMPARISON: [facility], [place], THORAX WITH CONTRAST, 05/15/2016, 13:16. [facility], [place], [place] PARATHYROID WITH SPECT, 10/12/2019, 13:21. INDICATIONS: Primary hyperparathyroidism FINDINGS: Suboptimal evaluation due to technical/cortical issues. The patient declines parathyroid protocol examination Thyroid unremarkable. No definite or discrete nodule seen near the thyroid to correlate with the scintigraphic appearance from prior study dated 10/12/19. No pathologically enlarged lymphadenopathy. The vessels are contrast opacified and grossly patent. Superior mediastinum within normal limits. No axillary lymphadenopathy. The osseous structures are grossly unremarkable. Within the visualized upper lobes, there is consolidation with masslike appearance involving the posterior right upper lobe on image 62/2. This measures 1.8 x 3.0 cm. Elsewhere, scattered scarring and atelectasis. Cervical spondylosis and facet arthropathy. IMPRESSION: Suboptimal evaluation given no dedicated parathyroid protocol images. No discrete nodules to correlate with the scintigraphic appearance from prior study dated 09/24/19. Masslike consolidation involving the posterior right upper lobe, which is indeterminate although worrisome for neoplasm. PET/CT evaluation could be performed as clinically warranted. This finding is new since 05/15/16 Dictated by: Rich Lee M.D. on 04/13/2020 at 15:44 Approved by: Rich Lee M.D. on 04/13/2020 at 15:54
[2020-04-04 16:12] LABS: BUN Creatinine Ratio 14.9 (6-22); Blood Urea Nitrogen 18 mg/dL (7-17); Calcium 9.6 mg/dL (8.4-10.2); Carbon Dioxide 27 mmol/L (22-32); Chloride 93 mmol/L (98-107); Estimated Glomerular Filt Rate 42.5 mL/min (>60); Glucose 109 mg/dL (80-110); HEMOLYSIS < 15 (0-50); Potassium 4.3 mmol/L (3.4-5.1); Sodium 120 mmol/L (137-145)
[2020-04-04 16:36] LABS: Vitamin D 25 Hydroxy (D3) 62.7 ng/mL (30.0-100.0)
[2020-04-05 10:28] LABS: Calcium 9.3 mg/dL (8.7-10.3); Parathyroid Hormone, Intact 107 pg/mL (15-65)
[2020-04-08 10:36] LABS: Ionized Calcium 5.4 mg/dL (4.5-5.6)
== END ==
PROVIDERS: PCP Student in an Organized Health Care Education/Training Program; Referring Provider Otolaryngology; Visit Provider Otolaryngology
DX: E21.0 Primary hyperparathyroidism (principal); M47.812 Spondylosis without myelopathy or radiculopathy, cervical region; R91.8 Other nonspecific abnormal finding of lung field
CPT/HCPCS: 36415; 70491; 80048; 82306; 82310; 82330; 82565; 83970; 84520; Q9967

== ENCOUNTER → 2020-05-30 15:10 | Outpatient (CLI) | payer OTHER, MEDICAID, SELFPAY ==
[2020-02-28 22:21] VITALS: BMI 23.3
== END ==
PROVIDERS: PCP Student in an Organized Health Care Education/Training Program; Referring Provider Internal Medicine; Visit Provider Internal Medicine
DX: M81.0 Age-related osteoporosis without current pathological fracture (principal); E21.0 Primary hyperparathyroidism; Z90.722 Acquired absence of ovaries, bilateral; Z82.62 Family history of osteoporosis; Z78.0 Asymptomatic menopausal state
CPT/HCPCS: 77080

== ENCOUNTER → 2021-03-01 16:31 | Outpatient (CLI) | payer OTHER, MEDICAID, SELFPAY ==
[2020-02-28 22:21] VITALS: BMI 23.3
[2021-03-20 09:36] LABS: Acetylcholine Blocking AB 21 % (0-25); Acetylcholine Modulating AB <12 % (0-20); Acetylcholine Receptor Bind AB <0.03 nmol/L (0.00-0.24); MuSK Antibodies <1.0 U/mL (.)
== END ==
PROVIDERS: PCP Internal Medicine; Referring Provider Ophthalmology; Visit Provider Ophthalmology
DX: H02.423 Myogenic ptosis of bilateral eyelids (principal)
CPT/HCPCS: 36415; 83519; 86255